=== PATIENT | female | born 1940 | race American Indian/Alaskan Native ===

== ENCOUNTER 2018-08-03 17:10 | Inpatient (IN) | payer MEDICARE ==
[2018-08-03 18:27] LABS: Basophils % (Auto) 0.8 % (0.0-1.8); Eosinophils # (Auto) 0.1 K/mm3 (0.0-0.4); Hematocrit 40.7 % (30.3-42.9); Hemoglobin 13.4 gm/dl (10.1-14.3); Lymphocytes # (Auto) 1.1 K/mm3 (1.2-5.4); Lymphocytes % (Auto) 18.2 % (13.4-35.0); Mean Corpuscular HGB Conc 33 % (30-34); Mean Corpuscular Hemoglobin 33 pg (28-32); Mean Corpuscular Volume 100 fl (79-97); Monocytes # (Auto) 0.8 K/mm3 (0.0-0.8); Monocytes % (Auto) 12.9 % (0.0-7.3); Platelet Count 390 K/mm3 (140-440); Red Blood Count 4.07 M/mm3 (3.65-5.03); Red Cell Distribution Width 14.9 % (13.2-15.2)
[2018-08-03 18:42] LABS: BUN/Creatinine Ratio 10; Blood Urea Nitrogen 6 mg/dL (7-17); Hemolysis Index 5
[2018-08-03 18:44] LABS: INR 1.11 (0.87-1.13)
[2018-08-03 18:45] LABS: Partial Thromboplastin Time 29.4 Sec. (24.2-36.6)
[2018-08-03] MEDS ORDERED: ELIQUIS PO ONE (19:56)
--- NOTE | 2018-08-03 20:06 | Emergency Department Report ---
HPI - General Chief Complaint: Extremity Problem,Nontraumatic Time Seen by Provider: 08/03/18 17:43 - HPI HPI: 78-year-old AA female presents to the emergency department by EMS from the [facility] with the complaint of a positive left upper extremity Doppler ultrasound study showing DVT. 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 All top of that, the patient has been placed on Megace recently to stimulate her appetite. The patient's daughter, who is bedside, says that they had noticed that her left arm was swollen and therefore the facility [facility] today to get the ultrasound which came back showing a DVT involving the subclavian, axillary and brachial veins. Patient also has a past mental history of CHF, hypertension and dementia. The patient herself is a poor historian but her daughter has been providing information. The primary care physician is Dr. Hussain Patiño. ED Past Medical Hx - Past Medical History Hx Hypertension: Yes Hx Congestive Heart Failure: Yes Hx Deep Vein Thrombosis: No Hx Psychiatric Treatment: Yes (DEMENTIA) - Surgical History Hx Pacemaker: No Hx Internal Defibrillator: No - Social History Smoking Status: Never Smoker - Medications Home Medications: Home Medications Medication Instructions Recorded Confirmed Last Taken Type Mirtazapine [Remeron] 15 mg PO HS 07/07/18 08/04/18 Unknown History QUEtiapine [SEROquel] 25 mg PO HS 07/07/18 08/04/18 Unknown History Aspirin EC [Aspirin Enteric Coated 81 mg PO QDAY #30 tablet. 07/11/18 Unknown Rx TAB] AtorvaSTATin [Lipitor] 40 mg PO QHS #30 tablet 07/11/18 08/04/18 Unknown Rx Carvedilol [Coreg] 6.25 mg PO BID tablet 07/11/18 08/04/18 Unknown Rx ISOSORBIDE MONOnitrate [Imdur ER] 30 mg PO QDAY tablet 07/11/18 08/04/18 Unknown Rx Lisinopril [Zestril TAB] 5 mg PO QDAY tablet 07/11/18 08/04/18 Unknown Rx Apixaban [Eliquis] 5 mg PO BID #74 tablet 08/03/18 Unknown Rx ED Review of Systems ROS: Stated complaint: DVT TO LEFT ARM Other details as noted in HPI Comment: Unobtainable due to pts medical conditions Cardiovascular: edema (left arm) Musculoskeletal: arthralgia (left shoulder), myalgia (left arm) Physical Exam - Physical Exam Vital Signs: Vital Signs 08/03/18 17:49 Temperature 97.9 F Pulse Rate 85 Respiratory 18 Rate Blood Pressure 158/85 [Right] O2 Sat by Pulse 100 Oximetry Physical Exam: GENERAL: The patient is well-developed well-nourished. HENT: Normocephalic. Atraumatic. Patient has moist mucous membranes. EYES: Extraocular motions are intact. NECK: Supple. Trachea is midline. CHEST/LUNGS: Clear to auscultation. There is no respiratory distress noted. HEART/CARDIOVASCULAR: Regular. There is no tachycardia. There is no murmur. ABDOMEN: Abdomen is soft, nontender. Patient has normal bowel sounds. There is no abdominal distention. SKIN: Skin is warm and dry. There is some nonpitting swelling of the left upper extremity when compared to the right. NEURO: The patient is awake and cooperative. The patient has normal speech. MUSCULOSKELETAL: There is no significant tenderness to palpation to the left upper extremity. Capillary refill is less than 2 seconds and radial pulse is + 2 over 4 to the affected left upper cavity.. There is decreased range of motion to the left upper extremity secondary to her previous stroke. ED Course Vital Signs 08/03/18 17:49 Temperature 97.9 F Pulse Rate 85 Respiratory 18 Rate Blood Pressure 158/85 [Right] O2 Sat by Pulse 100 Oximetry - Consultations Consultation #1: 08/03/18 20:05 I spoke to the vascular surgeon customer contact representative, Dr. Yun, regarding appropriate treatment of the patient's left upper extremity DVT. He agrees that if the patient's CT angiography of the chest does not show any pulmonary embolism, but the patient can be discharged back to her rehabilitation facility with anticoagulation. ED Medical Decision Making - Lab Data Result diagrams: 08/04/18 05:26 08/04/18 05:26 - Radiology Data Radiology results: report reviewed The outpatient ultrasound left upper extremity venous Doppler was reviewed and shows a deep vein thrombosis involving the subclavian, axillary, and brachial veins. PROCEDURE: CT angiogram chest with contrast. TECHNIQUE: Computerized tomographic angiography of the chest was performed after the IV injection of iodinated nonionic contrast including image processing. The image data was postprocessed using 2-dimensional multiplanar reformatted (MPR) and 3-dimensional (MIP and/or volume rendered) techniques. HISTORY: Left upper extremity deep venous thrombosis, shortness of breath. COMPARISON: No prior studies are available for comparison. FINDINGS: The trachea and central bronchi appear normal. There is mild subsegmental atelectasis in both lower lobes. The lungs are otherwise clear and well expanded. There are no pleural effusions. The thoracic aorta is mildly ectatic and moderately elongated. There is no evidence of an aortic dissection. There are at least 2 small filling defects in pulmonary arterial branches of the right lower lobe. These are consistent with small pulmonary emboli. The left pulmonary arterial branches enhance normally. There is no mediastinal adenopathy. The heart size is normal. The adrenal glands are not enlarged. The thoracic skeleton appears intact. There are several masses of low attenuation within the liver. These likely represent numerous hepatic cysts. This could be easily confirmed by ultrasound scanning. IMPRESSION: Small pulmonary emboli in the right lower lobe. Transcribed By: [facility] Dictated By: YELENA GRIFFIN MD Electronically Authenticated By: YELENA GRIFFIN MD Signed Date/Time: 08/03/182106 - Medical Decision Making The patient presents with a ultrasound showing acute left upper extremity DVT of the brachial, axillary and subclavian veins. This is most likely secondary to the patient's recent use of Megace and that she has left upper extremity paresis from her previous stroke. Patient has good capillary refill, a strong radial pulse and has normal skin color. There is low suspicion for any type of arterial insufficiency or cerulea dolens. The patient has not had any complaints of shortness of breath, chest pain, back pain but does have a history of dementia and therefore I have decided to rule out a pulmonary embolism in this patient. She will have a CT angiography of the chest that will be followed by one of my colleagues. If the patient does in fact have a pulmonary embolism, the patient will be admitted to the hospital. If there are no signs of any pulmonary embolism or any other condition found that requires admission, the patient will be discharged home to the rehabilitation facility. She has been given a first dose of Eliquis here to get anticoagulated and I will write a prescription for home. All of this information has been given to the patient's daughter including the anticoagulation and that she will get outpatient referral for vascular. I have reviewed the patient's CT angiography last night after I left the patient did end up having 2 small right lower pulmonary emboli. I had already started anticoagulation on Eliquis the patient was admitted to the hospital for further evaluation and treatment and was accepted by Dr. Owen. - Differential Diagnosis DVT, PE, cellulitis Critical Care Time: No Critical care attestation.: If time is entered above; I have spent that time in minutes in the direct care of this critically ill patient, excluding procedure time. ED Disposition Clinical Impression: Dementia Deep vein thrombosis (DVT) of axillary vein of left upper extremity Qualifiers: Chronicity: acute Qualified Code(s): I82.A12 - Acute embolism and thrombosis of left axillary vein Deep vein thrombosis (DVT) of brachial vein of left upper extremity Qualifiers: Chronicity: acute Qualified Code(s): I82.622 - Acute embolism and thrombosis of deep veins of left upper extremity Acute DVT (deep venous thrombosis) Qualifiers: DVT location: upper extremity Affected thrombotic vein of extremity: unspecified vein of extremity Laterality: left Qualified Code(s): I82.622 - Acute embolism and thrombosis of deep veins of left upper extremity Pulmonary embolism Qualifiers: Pulmonary embolism type: other Acute cor pulmonale presence: without acute cor pulmonale Disposition: 09 OP ADMIT IP TO THIS HOSP Is pt being admited?: Yes Condition: Stable
--- NOTE | 2018-08-03 21:08 | Cat Scan Report ---
FINAL REPORT PROCEDURE: CT angiogram chest with contrast. TECHNIQUE: Computerized tomographic angiography of the chest was performed after the IV injection of iodinated nonionic contrast including image processing. The image data was postprocessed using 2-dimensional multiplanar reformatted (MPR) and 3-dimensional (MIP and/or volume rendered) techniques. HISTORY: Left upper extremity deep venous thrombosis, shortness of breath. COMPARISON: No prior studies are available for comparison. FINDINGS: The trachea and central bronchi appear normal. There is mild subsegmental atelectasis in both lower lobes. The lungs are otherwise clear and well expanded. There are no pleural effusions. The thoracic aorta is mildly ectatic and moderately elongated. There is no evidence of an aortic dissection. There are at least 2 small filling defects in pulmonary arterial branches of the right lower lobe. These are consistent with small pulmonary emboli. The left pulmonary arterial branches enhance normally. There is no mediastinal adenopathy. The heart size is normal. The adrenal glands are not enlarged. The thoracic skeleton appears intact. There are several masses of low attenuation within the liver. These likely represent numerous hepatic cysts. This could be easily confirmed by ultrasound scanning. IMPRESSION: Small pulmonary emboli in the right lower lobe.
--- NOTE | 2018-08-03 21:22 | Emergency Department Report ---
ED General Adult HPI - General Chief complaint: Extremity Problem,Nontraumatic Stated complaint: DVT TO LEFT ARM Time Seen by Provider: 08/03/18 17:43 Source: EMS, RN notes reviewed Mode of arrival: Stretcher Limitations: Altered Mental Status, Physical Limitation - History of Present Illness Initial comments: Patient is 78 years old female, [facility] patient recently diagnosed with a stroke. Patient was sent from the [facility] after he was found to have left upper extremity DVT. Patient had history of advanced dementia and congestive heart failure. Patient is unable to provide any history. Most of the information is from daughter. Severity scale (0 -10): 0 - Related Data Home Medications Medication Instructions Recorded Confirmed Last Taken Mirtazapine [Remeron] 15 mg PO HS 07/07/18 07/07/18 Unknown QUEtiapine [SEROquel] 25 mg PO HS 07/07/18 07/07/18 Unknown Previous Rx's Medication Instructions Recorded Last Taken Type Aspirin EC [Aspirin Enteric Coated 81 mg PO QDAY #30 tablet.dr 07/11/18 Unknown Rx TAB] AtorvaSTATin [Lipitor] 40 mg PO QHS #30 tablet 07/11/18 Unknown Rx Carvedilol [Coreg] 6.25 mg PO BID tablet 07/11/18 Unknown Rx ISOSORBIDE MONOnitrate [Imdur ER] 30 mg PO QDAY tablet 07/11/18 Unknown Rx Lisinopril [Zestril TAB] 5 mg PO QDAY tablet 07/11/18 Unknown Rx Apixaban [Eliquis] 5 mg PO BID #74 tablet 08/03/18 Unknown Rx Allergies Allergy/AdvReac Type Severity Reaction Status Date / Time Penicillins Allergy Mild Rash Verified 07/07/18 09:42 ED Review of Systems ROS: Stated complaint: DVT TO LEFT ARM Other details as noted in HPI Comment: Unobtainable due to pts medical conditions Cardiovascular: edema (left arm) Musculoskeletal: arthralgia (left shoulder), myalgia (left arm) ED Past Medical Hx - Past Medical History Hx Hypertension: Yes Hx Congestive Heart Failure: Yes Hx Deep Vein Thrombosis: No Hx Psychiatric Treatment: Yes (DEMENTIA) - Surgical History Hx Pacemaker: No Hx Internal Defibrillator: No - Social History Smoking Status: Never Smoker - Medications Home Medications: Home Medications Medication Instructions Recorded Confirmed Last Taken Type Mirtazapine [Remeron] 15 mg PO HS 07/07/18 07/07/18 Unknown History QUEtiapine [SEROquel] 25 mg PO HS 07/07/18 07/07/18 Unknown History Aspirin EC [Aspirin Enteric Coated 81 mg PO QDAY #30 tablet.dr 07/11/18 Unknown Rx TAB] AtorvaSTATin [Lipitor] 40 mg PO QHS #30 tablet 07/11/18 Unknown Rx Carvedilol [Coreg] 6.25 mg PO BID tablet 07/11/18 Unknown Rx ISOSORBIDE MONOnitrate [Imdur ER] 30 mg PO QDAY tablet 07/11/18 Unknown Rx Lisinopril [Zestril TAB] 5 mg PO QDAY tablet 07/11/18 Unknown Rx Apixaban [Eliquis] 5 mg PO BID #74 tablet 08/03/18 Unknown Rx ED Physical Exam - General Limitations: Altered Mental Status, Physical Limitation General appearance: alert, in no apparent distress, other (slightly tachypnic) - Head Head exam: Present: atraumatic, normocephalic, normal inspection - Eye Eye exam: Present: normal appearance - ENT ENT exam: Present: normal exam, normal orophraynx - Neck Neck exam: Present: normal inspection, full ROM. Absent: tenderness, meningismus, lymphadenopathy, thyromegaly - Respiratory Respiratory exam: Present: normal lung sounds bilaterally - Cardiovascular Cardiovascular Exam: Present: regular rate, normal rhythm, normal heart sounds - GI/Abdominal GI/Abdominal exam: Present: soft, normal bowel sounds. Absent: distended, tenderness, guarding, rebound, rigid - Extremities Exam Extremities exam: Present: normal inspection - Back Exam Back exam: Present: normal inspection, full ROM - Neurological Exam Neurological exam: Present: alert, altered - Skin Skin exam: Present: warm, intact ED Course Vital Signs 08/03/18 08/03/18 17:49 21:17 Temperature 97.9 F 98 F Pulse Rate 85 77 Respiratory 18 20 Rate Blood Pressure 158/85 134/68 [Right] O2 Sat by Pulse 100 98 Oximetry ED Medical Decision Making - Lab Data Result diagrams: 08/03/18 18:15 08/03/18 18:15 - Radiology Data Radiology results: report reviewed Referring Physician: NI CACERES Patient Name: BRIGIDA MOSQUEDA Date of : 1940 Sex: Female Report Date: 2018-08-03 Report Status: Finalized Findings [facility] [address] [place] [address] Cat Scan Report Signed Patient: BRIGIDA MOSQUEDA MR#: [id number] : 1940 Acct:[id number] Age/Sex: 78 / F ADM Date: 08/03/18 Loc: ED Attending Dr: Ordering Physician: NI CACERES DO Date of Service: 08/03/18 Procedure(s): CT angio chest Accession Number(s): [id number] cc: NI CACERES DO FINAL REPORT PROCEDURE: CT angiogram chest with contrast. TECHNIQUE: Computerized tomographic angiography of the chest was performed after the IV injection of iodinated nonionic contrast including image processing. The image data was postprocessed using 2-dimensional multiplanar reformatted (MPR) and 3-dimensional (MIP and/or volume rendered) techniques. HISTORY: Left upper extremity deep venous thrombosis, shortness of breath. COMPARISON: No prior studies are available for comparison. FINDINGS: The trachea and central bronchi appear normal. There is mild subsegmental atelectasis in both lower lobes. The lungs are otherwise clear and well expanded. There are no pleural effusions. The thoracic aorta is mildly ectatic and moderately elongated. There is no evidence of an aortic dissection. There are at least 2 small filling defects in pulmonary arterial branches of the right lower lobe. These are consistent with small pulmonary emboli. The left pulmonary arterial branches enhance normally. There is no mediastinal adenopathy. The heart size is normal. The adrenal glands are not enlarged. The thoracic skeleton appears intact. There are several masses of low attenuation within the liver. These likely represent numerous hepatic cysts. This could be easily confirmed by ultrasound scanning. IMPRESSION: Small pulmonary emboli in the right lower lobe. Transcribed By: [facility] Dictated By: YELENA GRIFFIN MD Electronically Authenticated By: YELENA GRIFFIN MD Signed Date/Time: 08/03/182106 DD/ 06 TD/TT: 08/03/182106 - Medical Decision Making Nir is 78 years old female, [facility] patient recently diagnosed with a stroke. Patient was sent from the [facility] after she was found to have left upper extremity DVT. Patient had history of advanced dementia and congestive heart failure. Patient is unable to provide any history. Most of the information is from patient daughter. On physical exam patient slightly tachypneic but vital signs otherwise normal. Patient had a chest CTA which showed a right pulmonary emboli. I discussed patient with Dr. Emily Owen, she agreed to admit the patient to medical service. Critical Care Time: Yes Critical care time in (mins) excluding proc time.: 30 Critical care attestation.: If time is entered above; I have spent that time in minutes in the direct care of this critically ill patient, excluding procedure time. ED Disposition Clinical Impression: Deep vein thrombosis (DVT) of axillary vein of left upper extremity, Deep vein thrombosis (DVT) of brachial vein of left upper extremity, Dementia, CVA ( cerebral vascular accident), Pulmonary embolism Acute DVT (deep venous thrombosis) Qualifiers: DVT location: upper extremity Affected thrombotic vein of extremity: unspecified vein of extremity Laterality: left Qualified Code(s): I82.622 - Acute embolism and thrombosis of deep veins of left upper extremity Disposition: -09 OP ADMIT IP TO THIS HOSP Is pt being admited?: Yes Condition: Stable Instructions: Apixaban (By mouth), Deep Venous Thrombosis (ED) Additional Instructions: Please follow up with the primary care physician in the next few days. I have given him a referral for a local vascular surgeon, Dr devlin, for outpatient follow-up regarding her left upper extremity DVT. I have prescribed Eliquist, and anticoagulation medication for you to start. Please do not miss any doses unless there are signs of bleeding. I would recommend discontinuing the Megace , at least until follow-up with the primary care physician and vascular surgeon. Prescriptions: Apixaban [Eliquis] 5 mg PO BID #74 tablet Referrals: CHIN DEVLIN MD [Staff Physician] - 3-5 Days YAMILE FRAUSTO MD [Primary Care Provider] - 3-5 Days
[2018-08-03] MEDS: LOVENOX SUB-Q SCH (22:15)
[2018-08-03] MEDS ORDERED: ZOFRAN IV PRN (22:28)
[2018-08-03] MEDS ORDERED: SODIUM CHLORIDE FLUSH SYRINGE 10 ML IV PRN (22:28)
[2018-08-03] MEDS ORDERED: TYLENOL PO PRN (22:28)
--- NOTE | 2018-08-03 22:31 | History and Physical Report ---
History of Present Illness Date of examination: 08/03/18 History of present illness: 78-year-old woman with a history of dementia, breast cancer, recent CVA, dilated cardiomyopathy was sent to the emergency room for evaluation. The daughter state that she noticed in the left upper extremity was cold and has discoloration yesterday, ultrasound of the upper extremity was done and she was found to have a clot. In the emergency room scan of the chest was done which shows pulmonary emboli. The patient is unable to give a history. The patient was just discharged from the hospital, [[facility], just diagnosed with a CVA , dilated cardiomyopathy. Review of system unobtainable PAST MEDICAL HISTORY:dementia, breast cancer, recent CVA, dilated cardiomyopathy PAST SURGICAL HISTORY: Partial right meniscectomy SOCIAL HISTORY: No alcohol, no drugs, tobacco FAMILY HISTORY: Hypertension Medications and Allergies Allergies Allergy/AdvReac Type Severity Reaction Status Date / Time Penicillins Allergy Mild Rash Verified 07/07/18 09:42 Home Medications Medication Instructions Recorded Confirmed Last Taken Type Mirtazapine [Remeron] 15 mg PO HS 07/07/18 07/07/18 Unknown History QUEtiapine [SEROquel] 25 mg PO HS 07/07/18 07/07/18 Unknown History Aspirin EC [Aspirin Enteric Coated 81 mg PO QDAY #30 tablet.dr 07/11/18 Unknown Rx TAB] AtorvaSTATin [Lipitor] 40 mg PO QHS #30 tablet 07/11/18 Unknown Rx Carvedilol [Coreg] 6.25 mg PO BID tablet 07/11/18 Unknown Rx ISOSORBIDE MONOnitrate [Imdur ER] 30 mg PO QDAY tablet 07/11/18 Unknown Rx Lisinopril [Zestril TAB] 5 mg PO QDAY tablet 07/11/18 Unknown Rx Apixaban [Eliquis] 5 mg PO BID #74 tablet 08/03/18 Unknown Rx Active Meds: Active Medications Acetaminophen (Tylenol) 650 mg PO Q4H PRN PRN Reason: Pain MILD(1-3)/Fever >100.5/SOLIS Enoxaparin Sodium (Lovenox) 70 mg 1 mg/kg (70 mg) SUB-Q Q12HR CORNELL Ondansetron HCl (Zofran) 4 mg IV Q8H PRN PRN Reason: Nausea And Vomiting Sodium Chloride (Sodium Chloride Flush Syringe 10 Ml) 10 ml IV BID CORNELL Sodium Chloride (Sodium Chloride Flush Syringe 10 Ml) 10 ml IV PRN PRN PRN Reason: LINE FLUSH Exam - Physical Exam Narrative exam: Gen. appearance: Patient lying in bed, no apparent distress HEENT: Normocephalic, atraumatic, pupils equally round and reactive to light, extraocular movement intact, and no sclericterus,. No JVD or thyromegaly or nodule,neck supple, no carotid bruit ,mucous membranes moist, no exudate or erythema Heart: S1, S2, regular rate and rhythm Lungs: Clear bilaterally, breathing comfortable Abdomen: Positive bowel sounds, non-tender, nondistended, no organomegaly Extremity:no edema cyanosis, clubbing Skin: no rash, dry, warm Neuro: Oriented 3, cranial nerves II-12 intact, speech is fluent - Constitutional Vitals: Temp Pulse Resp BP Pulse Ox 98 F 72 22 134/68 97 08/03/18 21:17 08/03/18 21:31 08/03/18 21:31 08/03/18 21:31 08/03/18 21:31 Results - Labs CBC & Chem 7: 08/03/18 18:15 08/03/18 18:15 Labs: Abnormal lab results 08/03/18 08/03/18 Range/Units 18:15 18:15 MCV 100 H (79-97) fl MCH 33 H (28-32) pg Bollinger % (Auto) 12.9 H (0.0-7.3) % Lymph # 1.1 L (1.2-5.4) K/mm3 BUN 6 L (7-17) mg/dL Creatinine 0.6 L (0.7-1.2) mg/dL Glucose 123 H (65-100) mg/dL - Imaging and Cardiology CT scan - chest: report reviewed Assessment and Plan Assessment Acute pulmonary emboli Left upper extremity DVT recent CVA dilated cardiomyopathy dementia history of breast cancer Plan Admit to medicine Full dose Lovenox, check Doppler lower extremity Consult cardiology ? Candidate for long-term anticoagulation Continue appropriate outpatient medications DVT prophylaxis
[2018-08-04 06:08] LABS: Basophils # (Auto) 0.1 K/mm3 (0.0-0.1); Basophils % (Auto) 0.9 % (0.0-1.8); Eosinophils % (Auto) 0.6 % (0.0-4.3); Hematocrit 40.9 % (30.3-42.9); Hemoglobin 13.2 gm/dl (10.1-14.3); Lymphocytes # (Auto) 1.5 K/mm3 (1.2-5.4); Lymphocytes % (Auto) 23.6 % (13.4-35.0); Mean Corpuscular HGB Conc 32 % (30-34); Mean Corpuscular Hemoglobin 32 pg (28-32); Mean Corpuscular Volume 99 fl (79-97); Monocytes # (Auto) 0.7 K/mm3 (0.0-0.8); Monocytes % (Auto) 11.4 % (0.0-7.3); Platelet Count 367 K/mm3 (140-440); Red Blood Count 4.12 M/mm3 (3.65-5.03); Red Cell Distribution Width 14.6 % (13.2-15.2)
[2018-08-04 06:31] LABS: BUN/Creatinine Ratio 10; Blood Urea Nitrogen 5 mg/dL (7-17); Calcium 10.1 mg/dL (8.4-10.2); Hemolysis Index 11
--- NOTE | 2018-08-04 10:59 | Consultation ---
History of Present Illness Consult date: 08/04/18 Consult reason: other (Cardiomyopathy) History of present illness: This is a 78 year old woman with advanced Dementia who was sent to the emergency department from the intermediate with reports of positive left upper extremity DVT by doppler ultrasound study. On presentation, a chest CT scan revealed right lower lobe pulmonary embolism. Admission was requested. Of note, the patient was admitted to this hospital a month ago with acute CVA. Further evaluation with an echocardiogram revealed a dilated cardiomyopathy with a left ventricular ejection fraction 20-25% of uncertain chronicity. There was regional wall motion abnormalities suggestive of a prior anterior wall myocardial infarction. Patient was treated conservatively and placed on medical therapy for dilated cardiomyopathy. There were no reports of chest pain. There were no reports of shortness of breath or lower extremity edema. An 12 lead EKG shows a sinus rhythm, no acute ischemic changes. There were reports of arrhythmias seen on telemetry. Medications and Allergies Allergies Allergy/AdvReac Type Severity Reaction Status Date / Time Penicillins Allergy Mild Rash Verified 07/07/18 09:42 Home Medications Medication Instructions Recorded Confirmed Last Taken Type Mirtazapine [Remeron] 15 mg PO HS 07/07/18 08/04/18 Unknown History QUEtiapine [SEROquel] 25 mg PO HS 07/07/18 08/04/18 Unknown History Aspirin EC [Aspirin Enteric Coated 81 mg PO QDAY #30 tablet. 07/11/18 Unknown Rx TAB] AtorvaSTATin [Lipitor] 40 mg PO QHS #30 tablet 07/11/18 08/04/18 Unknown Rx Carvedilol [Coreg] 6.25 mg PO BID tablet 07/11/18 08/04/18 Unknown Rx ISOSORBIDE MONOnitrate [Imdur ER] 30 mg PO QDAY tablet 07/11/18 08/04/18 Unknown Rx Lisinopril [Zestril TAB] 5 mg PO QDAY tablet 07/11/18 08/04/18 Unknown Rx Apixaban [Eliquis] 5 mg PO BID #74 tablet 08/03/18 Unknown Rx Active Meds: Active Medications Acetaminophen (Tylenol) 650 mg PO Q4H PRN PRN Reason: Pain MILD(1-3)/Fever >100.5/SOLIS Atorvastatin Calcium (Lipitor) 40 mg PO QHS CORNELL Carvedilol (Coreg) 6.25 mg PO BID CORNELL Enoxaparin Sodium (Lovenox) 70 mg 1 mg/kg (70 mg) SUB-Q Q12HR [facility] Last Admin: 08/03/18 22:15 Dose: 70 mg Lisinopril (Zestril) 5 mg PO QDAY [facility] Ondansetron HCl (Zofran) 4 mg IV Q8H PRN PRN Reason: Nausea And Vomiting Quetiapine Fumarate (Seroquel) 25 mg PO HS CORNELL Sodium Chloride (Sodium Chloride Flush Syringe 10 Ml) 10 ml IV BID [facility] Sodium Chloride (Sodium Chloride Flush Syringe 10 Ml) 10 ml IV PRN PRN PRN Reason: LINE FLUSH Physical Examination Vital Signs Temp Pulse Resp BP Pulse Ox 97.9 F 85 18 158/85 100 08/03/18 17:49 08/03/18 17:49 08/03/18 17:49 08/03/18 17:49 08/03/18 17:49 General appearance: no acute distress HEENT: Positive: PERRL Cardiac: Positive: Reg Rate and Rhythm Results 08/04/18 05:26 08/04/18 05:26 Coagulation 08/03/18 Range/Units 18:15 PT 14.9 (12.2-14.9) Sec. INR 1.11 (0.87-1.13) APTT 29.4 (24.2-36.6) Sec. CBC 08/03/18 08/04/18 Range/Units 18:15 05:26 WBC 5.9 6.3 (4.5-11.0) K/mm3 RBC 4.07 4.12 (3.65-5.03) M/mm3 Hgb 13.4 13.2 (10.1-14.3) gm/dl Hct 40.7 40.9 (30.3-42.9) % Plt Count 390 367 (140-440) K/mm3 Lymph # 1.1 L 1.5 (1.2-5.4) K/mm3 [place] # 0.8 0.7 (0.0-0.8) K/mm3 Eos # 0.1 0.0 (0.0-0.4) K/mm3 Baso # 0.0 0.1 (0.0-0.1) K/mm3 Comprehensive Metabolic Panel 08/03/18 08/04/18 Range/Units 18:15 05:26 Sodium 140 140 (137-145) mmol/L Potassium 4.0 4.0 (3.6-5.0) mmol/L Chloride 104.3 108.6 H (98-107) mmol/L Carbon Dioxide 26 22 (22-30) mmol/L BUN 6 L 5 L (7-17) mg/dL Creatinine 0.6 L 0.5 L (0.7-1.2) mg/dL Glucose 123 H 85 (65-100) mg/dL Calcium 10.0 10.1 (8.4-10.2) mg/dL Assessment and Plan Acute PE/DVT Recent CVA Dilated cardiomyopathy, EF 20-25% Hypertension Advance Dementia
[2018-08-04] MEDS ORDERED: AFLURIA QUAD 2018-2019 SYRINGE IM ONE (12:00)
[2018-08-04] MEDS: LOVENOX SUB-Q SCH (12:15)
[2018-08-04] MEDS: COREG PO SCH ×2 (12:16→22:45)
[2018-08-04] MEDS: ZESTRIL PO SCH (12:16)
--- NOTE | 2018-08-04 13:50 | Progress Note ---
Assessment and Plan Assessment and plan: 78-year-old woman with a history of dementia, breast cancer, recent CVA, dilated cardiomyopathy was sent to the emergency room for evaluation. The daughter state that she noticed in the left upper extremity was cold and has discoloration yesterday, ultrasound of the upper extremity was done and she was found to have a clot. In the emergency room scan of the chest was done which shows pulmonary emboli. The patient is unable to give a history. The patient was just discharged from the hospital, [id number][[id number] [id number], just diagnosed with a CVA , dilated cardiomyopathy. Review of system unobtainable PAST MEDICAL HISTORY:dementia, breast cancer, recent CVA, dilated cardiomyopathy Acute pulmonary emboli Left upper extremity DVT recent CVA dilated cardiomyopathy dementia history of breast cancer Plan Admit to medicine Doppler lower extremity prelim neg for DVT Consult cardiology -switch from lovenox to eliquis Continue appropriate outpatient medications DVT prophylaxis History Interval history: Review of systems Constitutional: No fevers, no malaise, no joint pains CVS: No chest pain, no orthopnea, no dyspnea on exertion, no pedal edema GI: No abdominal pain, no diarrhea, no vomiting, no constipation Respiratory: No shortness of breath, no wheezing, no coughing Hospitalist Physical - Physical exam Narrative exam: General.: Appears well, no distress, nontoxic HEENT: Moist mucous membranes, extraocular muscles intact, no lymphadenopathy Neck: supple Cardiac: S1-S2 heard Lungs: clear to auscultation bilaterally Abdomen: soft , nontender, nondistended, bowel sounds positive Extremities: the left upper extremity edema, nontenderSkin: no rash or lesions Neurologic: Patient has decreased visual acuity, 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 Left upper extremity paralysis. She mostly refuses to open her eyes Psych: Patient is demented and oriented to person only, pleasant and cooperative - Constitutional Vitals: Temp Pulse Resp BP Pulse Ox 97.8 F 78 18 132/68 96 08/04/18 08:15 08/04/18 12:16 08/04/18 08:15 08/04/18 12:16 08/04/18 10:00 General appearance: Present: no acute distress Results - Labs CBC & Chem 7: 08/04/18 05:26 08/04/18 05:26 Labs: Laboratory Last Values WBC 6.3 K/mm3 (4.5-11.0) 08/04/18 05:26 RBC 4.12 M/mm3 (3.65-5.03) 08/04/18 05:26 Hgb 13.2 gm/dl (10.1-14.3) 08/04/18 05:26 Hct 40.9 % (30.3-42.9) 08/04/18 05:26 MCV 99 fl (79-97) H 08/04/18 05:26 MCH 32 pg (28-32) 08/04/18 05:26 MCHC 32 % (30-34) 08/04/18 05:26 RDW 14.6 % (13.2-15.2) 08/04/18 05:26 Plt Count 367 K/mm3 (140-440) 08/04/18 05:26 Lymph % (Auto) 23.6 % (13.4-35.0) 08/04/18 05:26 [place] % (Auto) 11.4 % (0.0-7.3) H 08/04/18 05:26 Eos % (Auto) 0.6 % (0.0-4.3) 08/04/18 05:26 Baso % (Auto) 0.9 % (0.0-1.8) 08/04/18 05:26 Lymph # 1.5 K/mm3 (1.2-5.4) 08/04/18 05:26 [place] # 0.7 K/mm3 (0.0-0.8) 08/04/18 05:26 Eos # 0.0 K/mm3 (0.0-0.4) 08/04/18 05:26 Baso # 0.1 K/mm3 (0.0-0.1) 08/04/18 05:26 Seg Neutrophils % 63.5 % (40.0-70.0) 08/04/18 05:26 Seg Neutrophils # 4.0 K/mm3 (1.8-7.7) 08/04/18 05:26 PT 14.9 Sec. (12.2-14.9) 08/03/18 18:15 INR 1.11 (0.87-1.13) 08/03/18 18:15 APTT 29.4 Sec. (24.2-36.6) 08/03/18 18:15 Sodium 140 mmol/L (137-145) 08/04/18 05:26 Potassium 4.0 mmol/L (3.6-5.0) 08/04/18 05:26 Chloride 108.6 mmol/L (98-107) H 08/04/18 05:26 Carbon Dioxide 22 mmol/L (22-30) 08/04/18 05:26 Anion Gap 13 mmol/L 08/04/18 05:26 BUN 5 mg/dL (7-17) L 08/04/18 05:26 Creatinine 0.5 mg/dL (0.7-1.2) L 08/04/18 05:26 Estimated GFR > 60 ml/min 08/04/18 05:26 BUN/Creatinine Ratio 10 % 08/04/18 05:26 Glucose 85 mg/dL (65-100) 08/04/18 05:26 Calcium 10.1 mg/dL (8.4-10.2) 08/04/18 05:26
[2018-08-04] MEDS: PLAVIX PO SCH (17:21)
[2018-08-04] MEDS: SODIUM CHLORIDE FLUSH SYRINGE 10 ML IV SCH ×2 (17:21→22:54)
[2018-08-04] MEDS: ELIQUIS PO SCH (22:46)
[2018-08-05] MEDS ORDERED: DULCOLAX PO PRN (01:18)
[2018-08-05] MEDS ORDERED: NITRO DUR TD SCH (06:00)
--- NOTE | 2018-08-05 09:24 | Progress Note ---
Assessment and Plan Acute PE/DVT initiated on eliquis for oral anticoagulation Recent CVA Dilated ischemic cardiomyopathy, EF 20-25% with RWMA on echo suggesting underlying coronary artery disease. Hypertension Advance Dementia Recommend: Continue medical therapy for ischemic cardiomyopathy and underlying coronary artery disease as tolerated. Subjective Date of service: 08/05/18 Interval history: Patient is resting in bed comfortably. Family members are at the bedside. Stable sinus rhythm on telemetry. Objective Vital Signs Temp Pulse Pulse Resp BP BP Pulse Ox 08/05/18 08:51 98.7 F 64 95 H 115/68 95 08/05/18 04:52 97.4 F L 60 20 116/74 93 08/05/18 00:06 97.3 F L 60 20 86/52 94 08/04/18 23:00 78 08/04/18 21:11 95 08/04/18 20:15 98.6 F 75 20 134/86 92 08/04/18 19:56 78 18 08/04/18 15:55 78 08/04/18 15:19 74 20 127/70 98 08/04/18 12:16 78 132/68 08/04/18 10:00 96 - Physical Examination General: No Apparent Distress Cardiac: Positive: Reg Rate and Rhythm
[2018-08-05] MEDS: MILK OF MAGNESIA PO PRN ×2 (09:58→10:02)
[2018-08-05] MEDS: ZESTRIL PO SCH (09:58)
[2018-08-05] MEDS: PLAVIX PO SCH (09:58)
[2018-08-05] MEDS: ELIQUIS PO SCH (10:00)
[2018-08-05] MEDS: COREG PO SCH (10:01)
[2018-08-05] MEDS: SODIUM CHLORIDE FLUSH SYRINGE 10 ML IV SCH (10:01)
--- NOTE | 2018-08-05 11:22 | Discharge Summary ---
Providers - Providers Date of Admission: 08/03/18 22:28 Attending physician: ANNIKA NORRIS MD 08/04/18 00:43 Consult to Physician [CONS] Routine Comment: Consulting Provider: PERLA NUNEZ Physician Instructions: Reason For Exam: CM, PE/CVA Primary care physician: YAMILE FRAUSTO Hospitalization Condition: Stable Disposition: DC-30 STILL A PATIENT Core Measure Documentation - Palliative Care Palliative Care/ Comfort Measures: Not Applicable Exam - Constitutional Vitals: Temp Pulse Resp BP Pulse Ox 98.7 F 64 95 H 115/68 93 08/05/18 08:51 08/05/18 08:51 08/05/18 08:51 08/05/18 08:51 08/05/18 11:14 Plan Follow up with: CHIN DEVLIN MD [Staff Physician] - 3-5 Days YAMILE FRAUSTO MD [Primary Care Provider] - 3-5 Days Prescriptions: Apixaban [Eliquis] 5 mg PO BID #74 tablet
[2018-08-05 12:49] VITALS: BP 135/72
--- NOTE | 2018-08-05 14:33 | Vascular Lab Report ---
LOWER EXTREMITY VENOUS DUPLEX: REASON FOR EXAM: Deep venous thrombosis. COMMENTS ON THE RIGHT: All veins visualized are freely compressible without evidence of internal echogenicity. Flow is spontaneous and phasic throughout. COMMENTS ON THE LEFT: All veins visualized are freely compressible without evidence of internal echogenicity. Flow is spontaneous and phasic throughout. IMPRESSION: No evidence of acute or chronic deep venous thrombosis in either lower extremity.
== END 2018-08-05 16:36 | DRG 299 ==
LOC: ED 17:10 → 4A 22:28
PROVIDERS: ADMIT Internal Medicine; ATTEND Internal Medicine
DX: I82.A12 Acute embolism and thrombosis of left axillary vein (principal); I26.99 Other pulmonary embolism without acute cor pulmonale; I42.0 Dilated cardiomyopathy; I82.622 Acute embolism and thrombosis of deep veins of left upper extremity; I50.9 Heart failure, unspecified; I11.0 Hypertensive heart disease with heart failure; I82.B12 Acute embolism and thrombosis of left subclavian vein; F03.90 Unspecified dementia, unspecified severity, without behavioral disturbance, psychotic disturbance, mood disturbance, and anxiety; Z86.73 Personal history of transient ischemic attack (TIA), and cerebral infarction without residual deficits; Z85.3 Personal history of malignant neoplasm of breast; Z88.0 Allergy status to penicillin; Z79.82 Long term (current) use of aspirin; Z79.899 Other long term (current) drug therapy; Z82.49 Family history of ischemic heart disease and other diseases of the circulatory system
CPT/HCPCS: 36415; 71275; 80048; 85025; 85610; 85730; 90686; 93970; 96372; A9270-GY; J1650; Q9967

== ENCOUNTER 2018-08-19 16:17 | Emergency (ER) | payer MEDICARE ==
--- NOTE | 2018-08-19 16:38 | Emergency Department Report ---
ED Neuro Deficit HPI - General Chief Complaint: Neuro Symptoms/Deficit Stated Complaint: POSS CVA Time Seen by Provider: 08/19/18 16:23 Source: family, EMS (verbal report received from EMS.ems notes not available at time of chart dictation), RN notes reviewed, old records reviewed Mode of arrival: Stretcher Limitations: Altered Mental Status, Physical Limitation - History of Present Illness Initial Comments: This is a 78-year-old female whom I have evaluated in the past. Her past medical history includes stroke with residual left-sided weakness, recent admission to this hospital for left upper extremity DVT and pulmonary embolus, currently on eliquis therapy, dilated ischemic cardiomyopathy with an ejection fraction of 20-25%, and profound dementia. She is brought to the hospital by EMS as a possible code stroke. As per verbal report from the patient's caregiver and her daughter, patient's last known well time is 12:00 PM. At 2:00, family was having trouble getting patient out of the car, and noticed that she was dragging her left leg more than usual. The patient is not communicative, and therefore is a very poor historian, and can therefore not describe exacerbating or relieving factors, radiation, or qualitative nature of her symptoms. As per review of old medical records, she is also on Plavix. -: unknown Location: left leg, right leg History of same: Yes Place: home - Related Data Home Medications: Home Medications Medication Instructions Recorded Confirmed Last Taken Mirtazapine [Remeron] 15 mg PO HS 07/07/18 08/04/18 Unknown QUEtiapine [SEROquel] 25 mg PO HS 07/07/18 08/04/18 Unknown Aspirin EC [Aspirin Enteric Coated 81 mg PO QAM 08/19/18 08/19/18 Unknown TAB] Bisacodyl [Dulcolax suppos] 10 mg [place] QHS PRN 08/19/18 08/19/18 Unknown Lisinopril [Zestril TAB] 5 mg PO QPM 08/19/18 08/19/18 Unknown Nitroglycerin [Nitro Dur] 0.4 mg TD DAILY@0600 08/19/18 08/19/18 Unknown Previous Rx's Medication Instructions Recorded Last Taken Type AtorvaSTATin [Lipitor] 40 mg PO QHS #30 tablet 07/11/18 Unknown Rx Carvedilol [Coreg] 6.25 mg PO BID tablet 07/11/18 Unknown Rx Apixaban [Eliquis] 5 mg PO BID #74 tablet 08/03/18 Unknown Rx Allergies/Adverse Reactions: Allergies Allergy/AdvReac Type Severity Reaction Status Date / Time Penicillins Allergy Mild Rash Verified 07/07/18 09:42 ED Review of Systems ROS: Stated complaint: POSS CVA Other details as noted in HPI Comment: Unobtainable due to pts medical conditions ED Past Medical Hx - Past Medical History Hx Hypertension: Yes Hx Congestive Heart Failure: Yes Hx Deep Vein Thrombosis: No Hx Psychiatric Treatment: Yes (DEMENTIA) - Surgical History Hx Pacemaker: No Hx Internal Defibrillator: No - Social History Smoking Status: Never Smoker - Medications Home Medications: Home Medications Medication Instructions Recorded Confirmed Last Taken Type Mirtazapine [Remeron] 15 mg PO HS 07/07/18 08/04/18 Unknown History QUEtiapine [SEROquel] 25 mg PO HS 07/07/18 08/04/18 Unknown History AtorvaSTATin [Lipitor] 40 mg PO QHS #30 tablet 07/11/18 08/04/18 Unknown Rx Carvedilol [Coreg] 6.25 mg PO BID tablet 07/11/18 08/04/18 Unknown Rx Apixaban [Eliquis] 5 mg PO BID #74 tablet 08/03/18 Unknown Rx Aspirin EC [Aspirin Enteric Coated 81 mg PO QAM 08/19/18 08/19/18 Unknown History TAB] Bisacodyl [Dulcolax suppos] 10 mg NJ QHS PRN 08/19/18 08/19/18 Unknown History Lisinopril [Zestril TAB] 5 mg PO QPM 08/19/18 08/19/18 Unknown History Nitroglycerin [Nitro Dur] 0.4 mg TD DAILY@0600 08/19/18 08/19/18 Unknown History ED Neuro Physical Exam - General Limitations: Altered Mental Status, Physical Limitation, Other (patient is demented. Patient is a poor historian) General appearance: alert, in no apparent distress Suspected Stroke: Yes - Head Head exam: Present: atraumatic, normocephalic - Eye Eye exam: Present: normal appearance, PERRL, other (patient noted to be moving her eyes to the right and midline. She does not follow commands, and therefore a detailed extraocular movement examination cannot take place.) - ENT ENT exam: Present: normal exam, normal orophraynx, normal external ear exam - Neck Neck exam: Present: normal inspection, full ROM. Absent: tenderness, meningismus - Respiratory Respiratory exam: Present: normal lung sounds bilaterally. Absent: respiratory distress, wheezes, rales, rhonchi, stridor, chest wall tenderness, accessory muscle use, decreased breath sounds, prolonged expiratory - Cardiovascular Cardiovascular Exam: Present: regular rate, normal rhythm, normal heart sounds - GI/Abdominal GI/Abdominal exam: Present: soft. Absent: distended, tenderness, guarding, rebound, rigid, pulsatile mass - Extremities Exam Extremities exam: Present: normal inspection, other (2+ pulses noted in the bilateral upper, lower extremities. Compartments soft. No long bony tenderness. The pelvis is stable.). Absent: calf tenderness - Back Exam Back exam: Present: normal inspection, full ROM. Absent: paraspinal tenderness , vertebral tenderness - Neurological Exam Neurological exam: Present: altered, motor sensory deficit, other (there is no facial droop. Patient moving right upper extremity. Patient moves right foot. She indicates that she has no sensation in the right arm or right leg. She indicates sensation is intact to light touch in the left lower extremity) - NIHSS Assessment Interval: Baseline 1a. Level of Consciousness: arousable/minor stimuli 1b. LOC Questions: answers no questions correctly 1c. LOC Commands: performs 1 task correctly 2. Best Gaze: normal 3. Visual: no visual loss (unable to assess) 4. Facial Palsy: normal symmetrical movement 5b. Motor Arm Right: some gravity effort 5a. Motor Arm Left: no gravity effort 6a. Motor Leg Left: no gravity effort 6b. Motor Leg Right: some gravity effort 7. Limb Ataxia: amputation (unable to assess) 8. Sensory: mild/moderate sensory loss 9. Best Language: no aphasia 10. Dysarthria: normal 11. Extinction/Inattention: visual/tactile inattention Total Score: 16 Stroke Severity: Moderate to Severe Stroke - Psychiatric Psychiatric exam: Present: flat affect ED Course Vital Signs 08/19/18 08/19/18 08/19/18 16:20 17:15 17:50 Temperature 97.8 F Pulse Rate 73 72 74 Respiratory 13 16 21 Rate Blood Pressure 144/94 Blood Pressure 128/83 [Right] O2 Sat by Pulse 98 98 Oximetry 08/19/18 08/19/1808/19/18 18:01 18:15 18:31 Temperature Pulse Rate 81 80 84 Respiratory 20 19 22 Rate Blood Pressure 127/80 122/84 115/75 Blood Pressure [Right] O2 Sat by Pulse Oximetry 08/19/18 18:45 Temperature Pulse Rate 79 Respiratory 14 Rate Blood Pressure 115/75 Blood Pressure [Right] O2 Sat by Pulse Oximetry - Reevaluation(s) Reevaluation #1: 08/19/18 16:36 Differential diagnosis, including but not limited to: Ischemic stroke, hemorrhagic stroke, pneumonia, urinary tract infection Assessment and plan: 78-year-old female on systemic anticoagulation, jessicaquis, who presents with possible strokelike symptoms, and to start TPA candidate as she has had her systemic anticoagulation within the past 12 hours. This is confirmed by family and by animal caretaker. In addition, the patient's last known well time was 12:00 PM, and therefore is outside of 4.5 hour window. Furthermore, the patient was recently seen at this hospital beginning of July for strokelike symptoms, and her case was discussed with the endovascular stroke team at [facility], and she was not deemed to be an endovascular candidate secondary to her underlying dementia. Furthermore, she had a CT scan of her neck on July 10, which demonstrated calcified plaques within the distal vertebral arteries bilaterally, but otherwise not demonstrate significant large vessel occlusion. We will work the patient up for stroke, including appropriate laboratory studies , EKG, urinalysis x-ray of the chest, noncontrast CT scan of the brain. I will again discuss with [place] endovascular stroke neurology to determine patient's suitability for endovascular intervention, but I am highly doubtful that an emergent CT angiogram will be recommended. I will reassess after all the patient's data points have resulted. Patient may benefit from hospice/palliative care consult. Reevaluation #2: 08/19/18 17:32 Laboratory studies reviewed and are unremarkable. CT scan of the brain suggest stroke with petechial transformation. This hospital does not have neurosurgery , neuro critical care, or stroke neurology available for emergency room consultation. The patient has an emergency medical condition which cannot be definitively managed at this hospital, and thus requires transfer to a higher level of care. Case, laboratory studies, CT scan and physical findings were discussed with stroke neurologist, Dr. Anuel Jose, at the [place] [facility] , and he has accepted the patient as a transfer. He recommends prothrombin complex concentrate for anticoagulation reversal. Extensive discussion had with daughter. She gives informed consent for transfer. Also advised daughter to consider hospice/palliative care consult as receiving facility. - Lab Data Result diagrams: 08/19/18 16:37 08/19/18 16:37 Lab Results 08/19/18 08/19/18 08/19/18 Range/Units 16:21 16:37 16:37 WBC 5.3 (4.5-11.0) K/mm3 RBC 4.32 (3.65-5.03) M/mm3 Hgb 14.2 (10.1-14.3) gm/dl Hct 43.6 H (30.3-42.9) % MCV 101 H (79-97) fl MCH 33 H (28-32) pg MCHC 33 (30-34) % RDW 16.0 H (13.2-15.2) % Plt Count 282 (140-440) K/mm3 Add Manual Diff Complete Total Counted 100 Seg Neuts % (Manual) 59.0 (40.0-70.0) % Band Neutrophils % 0 % Lymphocytes % (Manual) 30.0 (13.4-35.0) % Reactive Lymphs % (Man) 0 % Monocytes % (Manual) 9.0 H (0.0-7.3) % Eosinophils % (Manual) 2.0 (0.0-4.3) % Basophils % (Manual) 0 (0.0-1.8) % Metamyelocytes % 0 % Myelocytes % 0 % Promyelocytes % 0 % Blast Cells % 0 % Nucleated RBC % Not Reportable Seg Neutrophils # Man 3.1 (1.8-7.7) K/mm3 Band Neutrophils # 0.0 K/mm3 Lymphocytes # (Manual) 1.6 (1.2-5.4) K/mm3 Abs React Lymphs (Man) 0.0 K/mm3 Monocytes # (Manual) 0.5 (0.0-0.8) K/mm3 Eosinophils # (Manual) 0.1 (0.0-0.4) K/mm3 Basophils # (Manual) 0.0 (0.0-0.1) K/mm3 Metamyelocytes # 0.0 K/mm3 Myelocytes # 0.0 K/mm3 Promyelocytes # 0.0 K/mm3 Blast Cells # 0.0 K/mm3 WBC Morphology Not Reportable Hypersegmented Neuts Not Reportable Hyposegmented Neuts Not Reportable Hypogranular Neuts Not Reportable Smudge Cells Not Reportable Toxic Granulation Not Reportable Toxic Vacuolation Not Reportable Dohle Bodies Not Reportable Pelger-Huet Anomaly Not Reportable Svetlana Rods Not Reportable Platelet Estimate Consistent w auto Clumped Platelets Not Reportable Plt Clumps, EDTA Not Reportable Large Platelets Not Reportable Giant Platelets Not Reportable Platelet Satelliting Not Reportable Plt Morphology Comment Not Reportable RBC Morphology Not Reportable Dimorphic RBCs Not Reportable Polychromasia Not Reportable Hypochromasia Not Reportable Poikilocytosis Not Reportable Anisocytosis Not Reportable Microcytosis Not Reportable Macrocytosis 1+ Spherocytes Not Reportable Pappenheimer Bodies Not Reportable Sickle Cells Not Reportable Target Cells Not Reportable Tear Drop Cells Not Reportable Ovalocytes Not Reportable Helmet Cells Not Reportable Ambroc[place] Bodies Not Reportable [place] Rings Not Reportable [place] Cells 1+ Bite Cells Not Reportable Crenated Cell Not Reportable Elliptocytes Not Reportable Acanthocytes (Spur) Few Rouleaux Not Reportable Hemoglobin C Crystals Not Reportable Schistocytes Not Reportable Malaria parasites Not Reportable Robert Bodies Not Reportable Hem Pathologist Commnt No PT 19.4 H (12.2-14.9) Sec. INR 1.54 H (0.87-1.13) APTT 35.7 (24.2-36.6) Sec. Thrombin Time 19.8 H (15.1-19.6) Sec. Sodium (137-145) mmol/L Potassium (3.6-5.0) mmol/L Chloride (98-107) mmol/L Carbon Dioxide (22-30) mmol/L Anion Gap mmol/L BUN (7-17) mg/dL Creatinine (0.7-1.2) mg/dL Estimated GFR ml/min BUN/Creatinine Ratio % Glucose (65-100) mg/dL POC Glucose 80 (70-105) Calcium (8.4-10.2) mg/dL Total Bilirubin (0.1-1.2) mg/dL AST (5-40) units/L ALT (7-56) units/L Alkaline Phosphatase (35-129) units/L Total Creatine Kinase (30-135) units/L CK-MB (CK-2) (0.0-4.0) ng/mL CK-MB (CK-2) Rel Index (0-4) Troponin T (0.00-0.029) ng/mL Total Protein (6.3-8.2) g/dL Albumin (3.9-5) g/dL Albumin/Globulin Ratio % //18 Range/Units 16:37 WBC (4.5-11.0) K/mm3 RBC (3.65-5.03) M/mm3 Hgb (10.1-14.3) gm/dl Hct (30.3-42.9) % MCV (79-97) fl MCH (28-32) pg MCHC (30-34) % RDW (13.2-15.2) % Plt Count (140-440) K/mm3 Add Manual Diff Total Counted Seg Neuts % (Manual) (40.0-70.0) % Band Neutrophils % % Lymphocytes % (Manual) (13.4-35.0) % Reactive Lymphs % (Man) % Monocytes % (Manual) (0.0-7.3) % Eosinophils % (Manual) (0.0-4.3) % Basophils % (Manual) (0.0-1.8) % Metamyelocytes % % Myelocytes % % Promyelocytes % % Blast Cells % % Nucleated RBC % Seg Neutrophils # Man (1.8-7.7) K/mm3 Band Neutrophils # K/mm3 Lymphocytes # (Manual) (1.2-5.4) K/mm3 Abs React Lymphs (Man) K/mm3 Monocytes # (Manual) (0.0-0.8) K/mm3 Eosinophils # (Manual) (0.0-0.4) K/mm3 Basophils # (Manual) (0.0-0.1) K/mm3 Metamyelocytes # K/mm3 Myelocytes # K/mm3 Promyelocytes # K/mm3 Blast Cells # K/mm3 WBC Morphology Hypersegmented Neuts Hyposegmented Neuts Hypogranular Neuts Smudge Cells Toxic Granulation Toxic Vacuolation Dohle Bodies Pelger-Huet Anomaly Svetlana Rods Platelet Estimate Clumped Platelets Plt Clumps, EDTA Large Platelets Giant Platelets Platelet Satelliting Plt Morphology Comment RBC Morphology Dimorphic RBCs Polychromasia Hypochromasia Poikilocytosis Anisocytosis Microcytosis Macrocytosis Spherocytes Pappenheimer Bodies Sickle Cells Target Cells Tear Drop Cells Ovalocytes Helmet Cells Ambrocio-[place] Bodies [place] Rings Mary Cells Bite Cells Crenated Cell Elliptocytes Acanthocytes (Spur) Rouleaux Hemoglobin C Crystals Schistocytes Malaria parasites Robert Bodies Hem Pathologist Commnt PT (12.2-14.9) Sec. INR (0.87-1.13) APTT (24.2-36.6) Sec. Thrombin Time (15.1-19.6) Sec. Sodium 138 (137-145) mmol/L Potassium 4.4 (3.6-5.0) mmol/L Chloride 104.4 (98-107) mmol/L Carbon Dioxide 21 L (22-30) mmol/L Anion Gap 17 mmol/L BUN 13 (7-17) mg/dL Creatinine 0.6 L (0.7-1.2) mg/dL Estimated GFR > 60 ml/min BUN/Creatinine Ratio 22 % Glucose 90 (65-100) mg/dL POC Glucose (70-105) Calcium 10.2 (8.4-10.2) mg/dL Total Bilirubin 0.30 (0.1-1.2) mg/dL AST 25 (5-40) units/L ALT 25 (7-56) units/L Alkaline Phosphatase 70 (35-129) units/L Total Creatine Kinase 52 (30-135) units/L CK-MB (CK-2) 1.2 (0.0-4.0) ng/mL CK-MB (CK-2) Rel Index 2.3 (0-4) Troponin T < 0.010 (0.00-0.029) ng/mL Total Protein 6.6 (6.3-8.2) g/dL Albumin 3.8 L (3.9-5) g/dL Albumin/Globulin Ratio 1.4 % - EKG Data -: EKG Interpreted by [place] EKG shows normal: sinus rhythm 08/19/18 19:04 Sinus, 79 bpm, borderline left axis deviation, motion artifact, low voltage in the lateral leads, abnormal EKG, T-wave inversions in the inferior leads, this is not a STEMI. - Radiology Data Radiology results: report reviewed, image reviewed - Core Measures Measure Exclusions: not indicated - Thrombolytic Inclusion/Exclusion Thrombolytic Exclusion Criteria: Symptom Onset > 3 Hours Thrombolytic Contraindications: Patient on Anticoagulants, GI or Other Bleeding Critical Care Time: Yes Critical care time in (mins) excluding proc time.: 45 Critical care attestation.: If time is entered above; I have spent that time in minutes in the direct care of this critically ill patient, excluding procedure time. ED Disposition Clinical Impression: CVA (cerebral vascular accident) [id number] IP Is pt being admited?: No Does the pt Need Aspirin: No Condition: Critical Referrals: PRIMARY CARE, [Primary Care Provider] - 3-5 Days
--- NOTE | 2018-08-19 17:07 | Cat Scan Report ---
FINAL REPORT EXAM: CT HEAD/BRAIN WO CON HISTORY: Stroke symptoms TECHNIQUE: 2.5 millimeter axial images from the skullbase to the vertex. Comparison: None FINDINGS: Low attenuation in the subcortical and deep white matter of the cerebral hemispheres bilaterally most likely represent areas of chronic post ischemic demyelination/small vessel disease. There is edema in the cortex and subcortical white matter in an area of the right posterior parietal lobe with areas of increased density within the area of infarct. Though these may represent thrombus within vascular structures, petechial hemorrhage also needs to be considered. There are 2 additional areas of appearance of cortical edema in the right frontal lobe suggestive of additional areas of acute cortical infarct. There is a mild degree of mass effect with effacement of the subarachnoid spaces in the area of acute infarct in the right parietal lobe. Ventricular size is concordant with the degree of atrophy. There is atherosclerotic vascular calcification of the internal carotid arteries bilaterally at the skullbase. The visualized portions of the orbits the, paranasal and mastoid sinuses are unremarkable. IMPRESSION: 1. Areas of acute cortical infarct in the right frontal and parietal lobes. There are small areas of increased density in the right parietal lobe infarct which may represent thrombus within vascular structures or areas of petechial hemorrhage. This study was discussed with Dr. Suarez at 4:55 p.m.
[2018-08-19 17:08] LABS: INR 1.54 (0.87-1.13); Partial Thromboplastin Time 35.7 Sec. (24.2-36.6); Thrombin Time 19.8 Sec. (15.1-19.6)
[2018-08-19 17:10] LABS: Hematocrit 43.6 % (30.3-42.9); Hemoglobin 14.2 gm/dl (10.1-14.3); Mean Corpuscular HGB Conc 33 % (30-34); Mean Corpuscular Hemoglobin 33 pg (28-32); Mean Corpuscular Volume 101 fl (79-97); Platelet Count 282 K/mm3 (140-440); Red Blood Count 4.32 M/mm3 (3.65-5.03)
[2018-08-19 17:18] LABS: Creatine Kinase MB 1.2 ng/mL (0.0-4.0)
[2018-08-19 17:19] LABS: Alanine Aminotransferase 25 units/L (7-56); Albumin 3.8 g/dL (3.9-5); BUN/Creatinine Ratio 22; Blood Urea Nitrogen 13 mg/dL (7-17); Calcium 10.2 mg/dL (8.4-10.2); Hemolysis Index 42
[2018-08-19] MEDS ORDERED: KCENTRA (1,000 U) VIAL IV STA (17:32)
--- NOTE | 2018-08-19 17:44 | XRay Report ---
FINAL REPORT EXAM: XR CHEST 1V AP HISTORY: cva TECHNIQUE: Frontal portable view of the chest Comparison: None FINDINGS: There is bilateral hypoinflation with crowding of the bronchovascular structures. There is pulmonary consolidation in the right lung base. Atelectasis versus infiltrate. There is no evidence of pneumothorax or pleural fluid collection. The cardiac silhouette is not well evaluated due to the hypoinflation. The thoracic aorta is mildly tortuous. The bony structures are notable for degenerative change of the shoulder joints bilaterally. IMPRESSION: 1. Hypoinflation with atelectasis versus infiltrate right lung base.
[2018-08-19 18:10] LABS: Basophils % (Manual) 0 % (0.0-1.8); Total Cells Counted 100
[2018-08-19 18:22] LABS: Acanthocytes Few; Burr Cells 1+; Macrocytosis 1+; Platelet Estimate Consistent w Auto
[2018-08-19] MEDS ORDERED: LEVAQUIN 500MG/100ML 500 MG/100 ML BAG IV ONE (19:03)
[2018-08-19 20:09] VITALS: BP 142/78
== END 2018-08-19 19:30 | disposition short-term general hospital (02) ==
LOC: ED 16:17
DX: I63.9 Cerebral infarction, unspecified (principal); I11.0 Hypertensive heart disease with heart failure; I50.9 Heart failure, unspecified; Z79.82 Long term (current) use of aspirin; Z88.0 Allergy status to penicillin
CPT/HCPCS: 36415; 70450; 71045; 80053; 82550; 82553; 82962; 84484; 85007; 85025; 85610; 85670; 85730; 93005; 93010; 99291; J7195

== ENCOUNTER 2018-12-03 12:08 | Inpatient (IN) | payer MEDICARE ==
[2018-12-03 14:42] LABS: Hematocrit 43.9 % (30.3-42.9); Hemoglobin 14.5 gm/dl (10.1-14.3); Mean Corpuscular HGB Conc 33 % (30-34); Mean Corpuscular Volume 102 fl (79-97); Red Blood Count 4.31 M/mm3 (3.65-5.03); Red Cell Distribution Width 16.9 % (13.2-15.2)
[2018-12-03 14:50] LABS: BUN/Creatinine Ratio 20; Blood Urea Nitrogen 10 mg/dL (7-17); Calcium 10.2 mg/dL (8.4-10.2); Hemolysis Index 59
--- NOTE | 2018-12-03 15:30 | XRay Report ---
CHEST ONE VIEW INDICATION: Hypertension. COMPARISON: 08/19/2018. FINDINGS: Portable, single, frontal chest radiograph demonstrates suboptimal inspiration with exaggerated cardiomediastinal silhouette. Grossly clear lungs. Demineralized bones. Extrinsic EKG leads. CONCLUSION: Limited, though unremarkable chest radiograph, as described. Thank you for the opportunity to participate in this patient's care.
--- NOTE | 2018-12-03 15:34 | Emergency Department Report ---
ED General Adult HPI - General Chief complaint: Pain General Stated complaint: LEG PAIN Time Seen by Provider: 12/03/18 13:18 Source: patient, family, EMS Mode of arrival: Stretcher Limitations: Altered Mental Status, Physical Limitation - History of Present Illness Initial comments: 78-year-old female is brought to the emergency department at the request of her home health care nurse. The home health care provider essentially observed a syncopal episode with prolonged alteration of consciousness. She stated that the patient vomited her hands sure. After that she was unresponsive. She remained with her normal color and respiratory rate. However she was not responding to "ice cubes on her forehead for 5-10 minutes". The nurse's aide did not report any obvious seizure activity. She was transported via EMS for further evaluation. The daughter is here as well. The daughter states that the patient had a syncopal episode "a long time ago. Apparently additionally she has a history of pulmonary embolism. She was placed Eliquis but this was discontinued after she had an intracranial hemorrhage. She has a left hemiparesis. She is ordinarily able to ambulate with a cane. She is very weak at this time in general. -: Sudden Severity scale (0 -10): 0 Quality: other (no pain complaint) Associated Symptoms: denies other symptoms (patient not voicing any complaints however she is debilitated) - Related Data Home Medications Medication Instructions Recorded Confirmed Last Taken Mirtazapine [Remeron] 15 mg PO QPM 07/07/18 08/19/18 Unknown QUEtiapine [SEROquel] 25 mg PO HS 07/07/18 08/19/18 Unknown Aspirin EC [Aspirin Enteric Coated 81 mg PO QAM 08/19/18 08/19/18 Unknown TAB] Bisacodyl [Dulcolax suppos] 10 mg AL QHS PRN 08/19/18 08/19/18 Unknown Lisinopril [Zestril TAB] 5 mg PO QPM 08/19/18 08/19/18 Unknown Nitroglycerin [Nitro Dur] 0.4 mg TD DAILY@0600 08/19/18 08/19/18 Unknown Previous Rx's Medication Instructions Recorded Last Taken Type AtorvaSTATin [Lipitor] 40 mg PO QHS #30 tablet 07/11/18 Unknown Rx Carvedilol [Coreg] 6.25 mg PO BID tablet 07/11/18 Unknown Rx Apixaban [Eliquis] 5 mg PO BID #74 tablet 08/03/18 Unknown Rx Allergies Allergy/AdvReac Type Severity Reaction Status Date / Time Penicillins Allergy Mild Rash Verified 07/07/18 09:42 ED Review of Systems ROS: Stated complaint: LEG PAIN Other details as noted in HPI Comment: Unobtainable due to pts medical conditions ED Past Medical Hx - Past Medical History Hx Hypertension: Yes Hx Congestive Heart Failure: Yes Hx Deep Vein Thrombosis: No Hx Psychiatric Treatment: Yes (DEMENTIA) - Surgical History Hx Pacemaker: No Hx Internal Defibrillator: No - Social History Smoking Status: Never Smoker Substance Use Type: None - Medications Home Medications: Home Medications Medication Instructions Recorded Confirmed Last Taken Type Mirtazapine [Remeron] 15 mg PO QPM 07/07/18 08/19/18 Unknown History QUEtiapine [SEROquel] 25 mg PO HS 07/07/18 08/19/18 Unknown History AtorvaSTATin [Lipitor] 40 mg PO QHS #30 tablet 07/11/18 08/19/18 Unknown Rx Carvedilol [Coreg] 6.25 mg PO BID tablet 07/11/18 08/19/18 Unknown Rx Apixaban [Eliquis] 5 mg PO BID #74 tablet 08/03/18 08/19/18 Unknown Rx Aspirin EC [Aspirin Enteric Coated 81 mg PO QAM 08/19/18 08/19/18 Unknown History TAB] Bisacodyl [Dulcolax suppos] 10 mg AL QHS PRN 08/19/18 08/19/18 Unknown History Lisinopril [Zestril TAB] 5 mg PO QPM 08/19/18 08/19/18 Unknown History Nitroglycerin [Nitro Dur] 0.4 mg TD DAILY@0600 08/19/18 08/19/18 Unknown History ED Physical Exam - General Limitations: Altered Mental Status, Physical Limitation General appearance: alert, in no apparent distress - Head Head exam: Present: atraumatic, normocephalic - Eye Eye exam: Present: normal appearance, PERRL, EOMI. Absent: scleral icterus - ENT ENT exam: Present: mucous membranes moist - Neck Neck exam: Present: normal inspection. Absent: tenderness, meningismus - Respiratory Respiratory exam: Present: normal lung sounds bilaterally. Absent: respiratory distress - Cardiovascular Cardiovascular Exam: Present: regular rate, normal rhythm. Absent: systolic murmur, diastolic murmur, rubs, gallop - GI/Abdominal GI/Abdominal exam: Present: soft, normal bowel sounds. Absent: distended, tenderness, guarding, rebound - Extremities Exam Extremities exam: Present: other (retracted right upper extremity) - Back Exam Back exam: Present: normal inspection - Neurological Exam Neurological exam: Present: altered (not well oriented), motor sensory deficit - Psychiatric Psychiatric exam: Present: normal affect, normal mood - Skin Skin exam: Present: warm, dry, intact, normal color. Absent: rash ED Course Vital Signs 12/03/18 12/03/18 12:36 15:11 Temperature 97.4 F L Pulse Rate 72 76 Respiratory 18 17 Rate Blood Pressure 104/67 Blood Pressure 95/54 [Right] O2 Sat by Pulse 97 100 Oximetry - Reevaluation(s) Reevaluation #1: Discussed with Dr. Muro. The patient will be admitted to [facility] telemetry. She is noted to have a slightly low CO2. Lactic acid is pending. It do not think the patient is septic however thus far there is no source of infection. She does not have service. Further evaluation is pending. Her EKG is abnormal but not diagnostic of STEMI or definitely acute ischemia. 12/03/18 15:43 Reevaluation #2: CT the head is pending. 12/03/18 15:45 ED Medical Decision Making - Lab Data Result diagrams: 12/03/18 14:09 12/03/18 14:09 Laboratory Results - last 24 hr 12/03/18 12/03/18 14:09 14:09 WBC 9.9 RBC 4.31 Hgb 14.5 H Hct 43.9 H MCV 102 H MCH 34 H MCHC 33 RDW 16.9 H Lymph % (Auto) Manager Organizational [place] % (Auto) Manager Organizational Eos % (Auto) Manager Organizational Baso % (Auto) Manager Organizational Lymph # Manager Organizational [place] # Manager Organizational Eos # Manager Organizational Baso # Manager Organizational Seg Neutrophils % Manager Organizational Seg Neutrophils # Manager Organizational Sodium 138 Potassium 4.5 Chloride 106.2 Carbon Dioxide 18 L Anion Gap 18 BUN 10 Creatinine 0.5 L Estimated GFR > 60 BUN/Creatinine Ratio 20 Glucose 83 Calcium 10.2 Platelet count reported to me to be over 250 K - EKG Data -: EKG Interpreted by Me EKG shows normal: sinus rhythm Rate: normal - EKG Data Interpretation: other (1 PVC. Inferolateral inverted T waves.) - Radiology Data Radiology results: report reviewed interpreted by me: Chest x-ray no acute process Critical care attestation.: If time is entered above; I have spent that time in minutes in the direct care of this critically ill patient, excluding procedure time. ED Disposition Clinical Impression: Blood CO2 decreased Syncopal episodes Qualifiers: Syncope type: unspecified Qualified Code(s): R55 - Syncope and collapse Disposition: OP ADMIT IP TO THIS HOSP Is pt being admited?: Yes Does the pt Need Aspirin: Yes Condition: Stable Instructions: Syncope (ED) Referrals: SANJIV MESSER MD [Primary Care Provider] - 3-5 Days Time of Disposition: 15:46
[2018-12-03] MEDS ORDERED: BABY ASPIRIN PO ONE (15:48)
[2018-12-03 15:51] LABS: Total Cells Counted 100
--- NOTE | 2018-12-03 15:56 | Cat Scan Report ---
FINAL REPORT EXAM: CT HEAD/BRAIN WO CON HISTORY: Syncope COMPARISON: CT of the head performed on 08/19/2018 TECHNIQUE: Multiple contiguous axial images were obtained from the skullbase to the vertex without a dministration of IV contrast. FINDINGS: There is encephalomalacia in the right parietal lobe, likely due to prior infarct. There is no acute territorial infarct. There are patchy areas of decreased attenuation in the subcortical and periventr icular white matter, likely due to chronic microvascular ischemic changes. There is no parenchymal he morrhage or extra-axial fluid collection. There is no mass or mass effect. There is no acute territor ial infarct. The ventricles are midline. The subarachnoid spaces and basilar cisterns are clear. Ther e is no skull fracture. The paranasal sinuses and mastoid air cells are clear. IMPRESSION: No acute intracranial abnormality. 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 Chronic microvascular ischemic changes in the subcortical and periventricular white matter.
[2018-12-03 15:57] LABS: Basophils % (Manual) 0 % (0.0-1.8)
[2018-12-03 15:58] LABS: INR 0.77 (0.87-1.13)
[2018-12-03 15:58] LABS: Burr Cells 2+; Macrocytosis 1+; Ovalocytes 1+; Platelet Clumps Few; Platelet Estimate Consistent w Auto
[2018-12-03 15:59] LABS: Partial Thromboplastin Time 23.7 Sec. (24.2-36.6)
[2018-12-03 16:05] LABS: Platelet Count 272 K/mm3 (140-440)
[2018-12-03 16:08] LABS: Albumin 3.6 g/dL (3.9-5)
[2018-12-03 16:32] LABS: Alanine Aminotransferase 21 units/L (7-56)
[2018-12-03 16:33] LABS: Bilirubin,Direct < 0.2 mg/dL (0-0.2)
[2018-12-04] MEDS ORDERED: DILAUDID IV PRN (00:40)
[2018-12-04] MEDS ORDERED: PERCOCET 5/325 PO PRN (00:40)
[2018-12-04] MEDS ORDERED: SODIUM CHLORIDE FLUSH SYRINGE 10 ML IV PRN (00:40)
[2018-12-04] MEDS ORDERED: ZOFRAN IV PRN (00:40)
[2018-12-04] MEDS ORDERED: TYLENOL PO PRN (00:40)
[2018-12-04] MEDS ORDERED: DULCOLAX PR PRN (00:45)
[2018-12-04] MEDS ORDERED: ELIQUIS PO SCH (01:00)
[2018-12-04] MEDS: D5NS 1,000 ML IV SCH ×2 (05:54→22:09)
--- NOTE | 2018-12-04 07:43 | History and Physical Report ---
History of Present Illness Date of examination: 12/03/18 Date of admission: 12/03/18 17:36 Chief complaint: Passed out prior to arrival in ER History of present illness: 78-year-old female is brought to the emergency department by Home health aide. Patient apparently passed out after a episode of vomiting.No chest pain.Recovered consciousness slowly.No fever or chills.Was Lethargic initially in ER but came back to baseline in couple of Hours. Past Medical History Hx Hypertension: Yes Hx Congestive Heart Failure: Yes Hx Deep Vein Thrombosis: No Hx Psychiatric Treatment: Yes (DEMENTIA) Surgical History Hx Pacemaker: No Hx Internal Defibrillator: No Social History Smoking Status: Never Smoker Substance Use Type: None Medications Home Medications: Home Medications Medication Instructions Recorded Confirmed Last Taken Type Mirtazapine [Remeron] 15 mg PO QPM 07/07/18 08/19/18 Unknown History QUEtiapine [SEROquel] 25 mg PO HS 07/07/18 08/19/18 Unknown History AtorvaSTATin [Lipitor] 40 mg PO QHS #30 tablet 07/11/18 08/19/18 Unknown Rx Carvedilol [Coreg] 6.25 mg PO BID tablet 07/11/18 08/19/18 Unknown Rx Apixaban [Eliquis] 5 mg PO BID #74 tablet 08/03/18 08/19/18 Unknown Rx Aspirin EC [Aspirin Enteric Coated 81 mg PO QAM 08/19/18 08/19/18 Unknown History TAB] Bisacodyl [Dulcolax suppos] 10 mg VT QHS PRN 08/19/18 08/19/18 Unknown History Lisinopril [Zestril TAB] 5 mg PO QPM 08/19/18 08/19/18 Unknown History Nitroglycerin [Nitro Dur] 0.4 mg TD DAILY@0600 08/19/18 08/19/18 Unknown History Review of Systems ROS: Stated complaint: LEG PAIN Other details as noted in HPI Comment: Unobtainable due to pts medical conditions Medications and Allergies Allergies Allergy/AdvReac Type Severity Reaction Status Date / Time Penicillins Allergy Mild Rash Verified 07/07/18 09:42 Home Medications Medication Instructions Recorded Confirmed Last Taken Type Mirtazapine [Remeron] 15 mg PO QPM 07/07/18 12/04/18 12/02/18 21:00 History 15mg QUEtiapine [SEROquel] 25 mg PO HS 07/07/18 12/04/18 12/02/18 21:00 History 25mg AtorvaSTATin [Lipitor] 40 mg PO QHS #30 tablet 07/11/18 12/04/18 12/02/18 20:00 Rx 40mg Carvedilol [Coreg] 6.25 mg PO BID tablet 07/11/18 12/04/18 12/02/18 20:00 Rx 6.25mg Apixaban [Eliquis] 5 mg PO BID #74 tablet 08/03/18 12/04/18 12/03/18 09:00 Rx 5mg Aspirin EC [Aspirin Enteric Coated 81 mg PO QAM 08/19/18 12/04/18 12/02/18 09:00 History TAB] 81mg Bisacodyl [Dulcolax suppos] 10 mg VT QHS PRN 08/19/18 12/04/18 Unknown History Lisinopril [Zestril TAB] 5 mg PO QPM 08/19/18 12/04/18 12/02/18 18:00 History 5mg Nitroglycerin [Nitro Dur] 0.4 mg TD DAILY@0600 08/19/18 12/04/18 Unknown History Active Meds: Active Medications Acetaminophen (Tylenol) 650 mg PO Q4H PRN PRN Reason: Pain MILD(1-3)/Fever >100.5/SOLIS Apixaban (Eliquis) 5 mg PO BID [facility]; Protocol Aspirin (Halfprin Ec) 81 mg PO QAM [facility] Atorvastatin Calcium (Lipitor) 40 mg PO QHS [facility] Bisacodyl (Dulcolax) 10 mg VT QHS PRN PRN Reason: Constipation Carvedilol (Coreg) 6.25 mg PO BID [facility] Famotidine (Pepcid) 20 mg PO BID [facility] Hydromorphone HCl (Dilaudid) 0.5 mg IV Q3H PRN PRN Reason: Pain , Severe (7-10) Dextrose/Sodium Chloride (D5ns) 1,000 mls @ 75 mls/hr IV DIRECT [facility] Last Admin: 12/04/18 05:54 Dose: 75 mls/hr Documented by: Lisinopril (Zestril) 5 mg PO QPM [facility] Mirtazapine (Remeron) 15 mg PO QPM [facility] Ondansetron HCl (Zofran) 4 mg IV Q8H PRN PRN Reason: Nausea And Vomiting Oxycodone/Acetaminophen (Percocet 5/325) 1 tab PO Q6H PRN PRN Reason: Pain, Moderate (4-6) Quetiapine Fumarate (Seroquel) 25 mg PO HS [facility] Sodium Chloride (Sodium Chloride Flush Syringe 10 Ml) 10 ml IV BID [facility] Sodium Chloride (Sodium Chloride Flush Syringe 10 Ml) 10 ml IV PRN PRN PRN Reason: LINE FLUSH Exam - Constitutional Vitals: Temp Pulse Resp BP Pulse Ox 97.4 F L 78 20 111/69 94 12/04/18 02:35 12/04/18 02:35 12/04/18 02:35 12/04/18 02:35 12/04/18 02:30 General appearance: Present: no acute distress, well-nourished - EENT Eyes: Present: PERRL ENT: hearing intact, clear oral mucosa - Neck Neck: Present: supple, normal ROM - Respiratory Respiratory effort: normal Respiratory: bilateral: CTA - Cardiovascular Heart rate: 78 Rhythm: regular Heart Sounds: Present: S1 & S2. Absent: rub, click - Extremities Extremities: no ischemia, pulses intact, pulses symmetrical, No edema Peripheral Pulses: within normal limits - Abdominal General gastrointestinal: Present: soft, non-tender, non-distended, normal bowel sounds Female genitourinary: Present: normal - Integumentary Integumentary: Present: clear, warm, dry - Musculoskeletal Musculoskeletal: gait normal, strength equal bilaterally - Psychiatric Psychiatric: appropriate mood/affect, intact judgment & insight - Neurologic Neurologic: CNII-XII intact, moves all extremities - Allied Health Allied health notes reviewed: nursing, case management Results - Labs CBC & Chem 7: 12/03/18 14:09 12/03/18 14:09 Labs: Laboratory Last Values WBC 9.9 K/mm3 (4.5-11.0) 12/03/18 14:09 RBC 4.31 M/mm3 (3.65-5.03) 12/03/18 14:09 Hgb 14.5 gm/dl (10.1-14.3) H 12/03/18 14:09 Hct 43.9 % (30.3-42.9) H 12/03/18 14:09 MCV 102 fl (79-97) H 12/03/18 14:09 MCH 34 pg (28-32) H 12/03/18 14:09 MCHC 33 % (30-34) 12/03/18 14:09 RDW 16.9 % (13.2-15.2) H 12/03/18 14:09 Plt Count 272 K/mm3 (140-440) 12/03/18 14:09 Lymph % (Auto) [place] Machine Operator 12/03/18 14:09 [place] % (Auto) Hoop Flaring Machine Operator 12/03/18 14:09 Eos % (Auto) [place] Machine Operator 12/03/18 14:09 Baso % (Auto) [place] Machine Operator 12/03/18 14:09 Lymph # [place] Machine Operator 12/03/18 14:09 [place] # Hoop Flaring Machine Operator 12/03/18 14:09 Eos # [place] Fl[place] Machine Operator 12/03/18 14:09 Baso # [place] Machine Operator 12/03/18 14:09 Add Manual Diff Complete 12/03/18 14:09 Total Counted 100 12/03/18 14:09 Seg Neutrophils % [place] Machine Operator 12/03/18 14:09 Seg Neuts % (Manual) 87.0 % (40.0-70.0) H 12/03/18 14:09 Band Neutrophils % 0 % 12/03/18 14:09 Lymphocytes % (Manual) 8.0 % (13.4-35.0) L 12/03/18 14:09 Reactive Lymphs % (Man) 0 % 12/03/18 14:09 Monocytes % (Manual) 3.0 % (0.0-7.3) 12/03/18 14:09 Eosinophils % (Manual) 2.0 % (0.0-4.3) 12/03/18 14:09 Basophils % (Manual) 0 % (0.0-1.8) 12/03/18 14:09 Metamyelocytes % 0 % 12/03/18 14:09 Myelocytes % 0 % 12/03/18 14:09 Promyelocytes % 0 % 12/03/18 14:09 Blast Cells % 0 % 12/03/18 14:09 Nucleated RBC % Not Reportable 12/03/18 14:09 Seg Neutrophils # [place] Machine Operator 12/03/18 14:09 Seg Neutrophils # Man 8.6 K/mm3 (1.8-7.7) H 12/03/18 14:09 Band Neutrophils # 0.0 K/mm3 12/03/18 14:09 Lymphocytes # (Manual) 0.8 K/mm3 (1.2-5.4) L 12/03/18 14:09 Abs React Lymphs (Man) 0.0 K/mm3 12/03/18 14:09 Monocytes # (Manual) 0.3 K/mm3 (0.0-0.8) 12/03/18 14:09 Eosinophils # (Manual) 0.2 K/mm3 (0.0-0.4) 12/03/18 14:09 Basophils # (Manual) 0.0 K/mm3 (0.0-0.1) 12/03/18 14:09 Metamyelocytes # 0.0 K/mm3 12/03/18 14:09 Myelocytes # 0.0 K/mm3 12/03/18 14:09 Promyelocytes # 0.0 K/mm3 12/03/18 14:09 Blast Cells # 0.0 K/mm3 12/03/18 14:09 WBC Morphology Not Reportable 12/03/18 14:09 Hypersegmented Neuts Not Reportable 12/03/18 14:09 Hyposegmented Neuts Not Reportable 12/03/18 14:09 Hypogranular Neuts Not Reportable 12/03/18 14:09 Smudge Cells Not Reportable 12/03/18 14:09 Toxic Granulation Not Reportable 12/03/18 14:09 Toxic Vacuolation Not Reportable 12/03/18 14:09 Dohle Bodies Not Reportable 12/03/18 14:09 Pelger-Huet Anomaly Not Reportable 12/03/18 14:09 Svetlana Rods Not Reportable 12/03/18 14:09 Platelet Estimate Consistent w auto 12/03/18 14:09 Clumped Platelets Few 12/03/18 14:09 Plt Clumps, EDTA Not Reportable 12/03/18 14:09 Large Platelets Not Reportable 12/03/18 14:09 Giant Platelets Not Reportable 12/03/18 14:09 Platelet Satelliting Not Reportable 12/03/18 14:09 Plt Morphology Comment Not Reportable 12/03/18 14:09 RBC Morphology Not Reportable 12/03/18 14:09 Dimorphic RBCs Not Reportable 12/03/18 14:09 Polychromasia Not Reportable 12/03/18 14:09 Hypochromasia Not Reportable 12/03/18 14:09 Poikilocytosis Not Reportable 12/03/18 14:09 Anisocytosis Not Reportable 12/03/18 14:09 Microcytosis Not Reportable 12/03/18 14:09 Macrocytosis 1+ 12/03/18 14:09 Spherocytes Not Reportable 12/03/18 14:09 Pappenheimer Bodies Not Reportable 12/03/18 14:09 Sickle Cells Not Reportable 12/03/18 14:09 Target Cells Not Reportable 12/03/18 14:09 Tear Drop Cells Not Reportable 12/03/18 14:09 Ovalocytes 1+ 12/03/18 14:09 Helmet Cells Not Reportable 12/03/18 14:09 Ambrocio-Gordon Bodies Not Reportable 12/03/18 14:09 [place]y Rings Not Reportable 12/03/18 14:09 Mary Cells 2+ 12/03/18 14:09 Bite Cells Not Reportable 12/03/18 14:09 Crenated Cell Not Reportable 12/03/18 14:09 Elliptocytes Not Reportable 12/03/18 14:09 Acanthocytes (Spur) Not Reportable 12/03/18 14:09 Rouleaux Not Reportable 12/03/18 14:09 Hemoglobin C Crystals Not Reportable 12/03/18 14:09 Schistocytes Not Reportable 12/03/18 14:09 Malaria parasites Not Reportable 12/03/18 14:09 Robert Bodies Not Reportable 12/03/18 14:09 Hem Pathologist Commnt No 12/03/18 14:09 PT 11.1 Sec. (12.2-14.9) L 12/03/18 15:13 INR 0.77 (0.87-1.13) L 12/03/18 15:13 APTT 23.7 Sec. (24.2-36.6) L 12/03/18 15:13 Sodium 138 mmol/L (137-145) 12/03/18 14:09 Potassium 4.5 mmol/L (3.6-5.0) 12/03/18 14:09 Chloride 106.2 mmol/L (98-107) 12/03/18 14:09 Carbon Dioxide 18 mmol/L (22-30) L 12/03/18 14:09 Anion Gap 18 mmol/L 12/03/18 14:09 BUN 10 mg/dL (7-17) 12/03/18 14:09 Creatinine 0.5 mg/dL (0.7-1.2) L 12/03/18 14:09 Estimated GFR > 60 ml/min 12/03/18 14:09 BUN/Creatinine Ratio 20 % 12/03/18 14:09 Glucose 83 mg/dL (65-100) 12/03/18 14:09 Lactic Acid 1.30 mmol/L (0.7-2.0) 12/03/18 15:13 Calcium 10.2 mg/dL (8.4-10.2) 12/03/18 14:09 Magnesium 2.30 mg/dL (1.7-2.3) 12/03/18 15:13 Total Bilirubin < 0.20 mg/dL (0.1-1.2) 12/03/18 15:13 Direct Bilirubin < 0.2 mg/dL (0-0.2) 12/03/18 15:13 Indirect Bilirubin 0.0 mg/dL 12/03/18 15:13 AST 32 units/L (5-40) 12/03/18 15:13 ALT 21 units/L (7-56) 12/03/18 15:13 Alkaline Phosphatase 76 units/L (35-129) 12/03/18 15:13 Troponin T < 0.010 ng/mL (0.00-0.029) 12/03/18 15:13 NT-Pro-B Natriuret Pep 424.4 pg/mL (0-900) 12/03/18 15:13 Total Protein 7.1 g/dL (6.3-8.2) 12/03/18 15:13 Albumin 3.6 g/dL (3.9-5) L 12/03/18 15:13 Albumin/Globulin Ratio 0.9 % 12/03/18 15:13 Short CBC 12/03/18 Range/Units 14:09 WBC 9.9 (4.5-11.0) K/mm3 Hgb 14.5 H (10.1-14.3) gm/dl Hct 43.9 H (30.3-42.9) % Plt Count 272 (140-440) K/mm3 BMP 12/03/18 14:09 Sodium 138 Potassium 4.5 Chloride 106.2 Carbon Dioxide 18 L BUN 10 Creatinine 0.5 L Glucose 83 Calcium 10.2 Cardiac Enzymes 12/03/18 Range/Units 15:13 Troponin T < 0.010 (0.00-0.029) ng/mL Liver Function 12/03/18 Range/Units 15:13 Total Bilirubin < 0.20 (0.1-1.2) mg/dL Direct Bilirubin < 0.2 (0-0.2) mg/dL AST 32 (5-40) units/L ALT 21 (7-56) units/L Alkaline Phosphatase 76 (35-129) units/L Albumin 3.6 L (3.9-5) g/dL - Imaging and Cardiology EKG: report reviewed Imaging and Cardiology: CXR CONCLUSION: Limited, though unremarkable chest radiograph, as described Ct Head IMPRESSION: No acute intracranial abnormality. 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 Chronic microvascular ischemic changes in the subcortical and periventricular white matter. Assessment and Plan Advance Directives: Yes (Full code) VTE prophylaxis?: Chemical - Patient Problems (1) Syncope and collapse Current Visit: Yes Status: Acute Plan to address problem: Syncope work up Lexiscan ECHO and CDS in AM (2) Deep vein thrombosis (DVT) of axillary vein of left upper extremity Current Visit: No Status: Chronic Qualifiers: Chronicity: acute Qualified Code(s): I82.A12 - Acute embolism and thrombosis of left axillary vein Plan to address problem: On Eliquis for same and PE in past (3) HTN (hypertension) Current Visit: Yes Status: Chronic Qualifiers: Hypertension type: essential hypertension Qualified Code(s): I10 - Essential (primary) hypertension Plan to address problem: COnt antihypertensives (4) HLD (hyperlipidemia) Current Visit: Yes Status: Chronic Qualifiers: Hyperlipidemia type: mixed hyperlipidemia Qualified Code(s): E78.2 - Mixed hyperlipidemia Plan to address problem: Cont statins (5) Bipolar 1 disorder Current Visit: Yes Status: Acute Plan to address problem: On seroquel (6) DVT prophylaxis Current Visit: No Status: Acute Plan to address problem: On Eliquis
[2018-12-04 07:48] LABS: Alanine Aminotransferase 19 units/L (7-56); Albumin 3.4 g/dL (3.9-5); BUN/Creatinine Ratio 17; Blood Urea Nitrogen 10 mg/dL (7-17); Calcium 10.5 mg/dL (8.4-10.2); Hemolysis Index 14
[2018-12-04] MEDS: COREG PO SCH ×2 (10:26→22:15)
[2018-12-04] MEDS: PEPCID PO SCH ×2 (10:26→22:15)
[2018-12-04] MEDS: HALFPRIN EC PO SCH (10:26)
[2018-12-04] MEDS: ELIQUIS PO SCH ×2 (10:26→22:30)
--- NOTE | 2018-12-04 11:10 | Vascular Lab Report ---
FINAL REPORT EXAM: VL CAROTID DUPLEX BILAT HISTORY: syncope COMPARISON: None. TECHNIQUE: Duplex Doppler ultrasound of the carotid arteries was performed. FINDINGS: There is a small amount of atherosclerotic plaque in the right common carotid artery and internal car otid artery causing less than 50 percent stenosis. There is antegrade flow in the right vertebral art maxine. There is a small amount of atherosclerotic plaque in the left common carotid artery and internal umanzor tid artery causing less than 50 percent stenosis. There is antegrade flow in the left vertebral arter y. Peak systolic velocities (cm/sec) are as follows: Right common carotid artery: 73.1 Right internal carotid artery: 69 Right external carotid artery: 49.2 Left common carotid artery: 75 Left internal carotid artery: 63.6 Left external carotid artery: 94 Peak systolic velocity ratio between the right internal carotid artery and the right common carotid a rtery: 0.94 Peak systolic velocity ratio between the left internal carotid artery and left common carotid artery: 0.85 IMPRESSION: Small amount of atherosclerotic disease in the bilateral carotid arteries causing less than 50 percen t stenosis.
--- NOTE | 2018-12-04 14:05 | Progress Note ---
Assessment and Plan Assessment and plan: (1) Syncope and collapse - CT head was normal, carotid Doppler less than 50% stenoses - Stress test was considered by cardiology because she has a recent stress test which was negative - Echo is pending, neurology consulted (2) Deep vein thrombosis (DVT) of axillary vein of left upper extremity On Eliquis for same and PE in past (3) HTN (hypertension) COnt antihypertensives (4) HLD (hyperlipidemia) Cont statins (5) Bipolar 1 disorder On seroquel (6) DVT prophylaxis On Eliquis Mild malnutrition - Nutrition consult Disposition; possible discharge tomorrow History Interval history: Patient was seen and evaluated this morning, patient is confused per her granddaughter that is her baseline. Hospitalist Physical - Physical exam Narrative exam: Not in cardiopulmonary distress. The patient is obese. Vital signs as documented. Head exam is unremarkable. No scleral icterus . Neck is without jugular venous distension, thyromegaly, or carotid bruits. Lungs are clear to auscultation. Cardiac exam reveals regular rate and Rhythm. Abdominal exam reveals normal bowel sounds, no masses, no organomegaly and no aortic enlargement. Extremities are nonedematous and both femoral and pedal pulses are normal. SLOT SUPERVISOR: Confused. LUE weakness. - Constitutional Vitals: Temp Pulse Resp BP Pulse Ox 97.6 F 79 16 133/82 93 12/04/18 08:02 12/04/18 10:26 12/04/18 10:00 12/04/18 10:26 12/04/18 07:25 General appearance: Present: no acute distress, well-nourished Results - Labs CBC & Chem 7: 12/03/18 14:09 12/04/18 06:33 Labs: Laboratory Last Values WBC 9.9 K/mm3 (4.5-11.0) 12/03/18 14:09 RBC 4.31 M/mm3 (3.65-5.03) 12/03/18 14:09 Hgb 14.5 gm/dl (10.1-14.3) H 12/03/18 14:09 Hct 43.9 % (30.3-42.9) H 12/03/18 14:09 MCV 102 fl (79-97) H 12/03/18 14:09 MCH 34 pg (28-32) H 12/03/18 14:09 MCHC 33 % (30-34) 12/03/18 14:09 RDW 16.9 % (13.2-15.2) H 12/03/18 14:09 Plt Count 272 K/mm3 (140-440) 12/03/18 14:09 Lymph % (Auto) Academic Support Specialist 12/03/18 14:09 [place] % (Auto) Academic Support Specialist 12/03/18 14:09 Eos % (Auto) Academic Support Specialist 12/03/18 14:09 Baso % (Auto) Academic Support Specialist 12/03/18 14:09 Lymph # Academic Support Specialist 12/03/18 14:09 [place] # Academic Support Specialist 12/03/18 14:09 Eos # Academic Support Specialist 12/03/18 14:09 Baso # Academic Support Specialist 12/03/18 14:09 Add Manual Diff Complete 12/03/18 14:09 Total Counted 100 12/03/18 14:09 Seg Neutrophils % Academic Support Specialist 12/03/18 14:09 Seg Neuts % (Manual) 87.0 % (40.0-70.0) H 12/03/18 14:09 Band Neutrophils % 0 % 12/03/18 14:09 Lymphocytes % (Manual) 8.0 % (13.4-35.0) L 12/03/18 14:09 Reactive Lymphs % (Man) 0 % 12/03/18 14:09 Monocytes % (Manual) 3.0 % (0.0-7.3) 12/03/18 14:09 Eosinophils % (Manual) 2.0 % (0.0-4.3) 12/03/18 14:09 Basophils % (Manual) 0 % (0.0-1.8) 12/03/18 14:09 Metamyelocytes % 0 % 12/03/18 14:09 Myelocytes % 0 % 12/03/18 14:09 Promyelocytes % 0 % 12/03/18 14:09 Blast Cells % 0 % 12/03/18 14:09 Nucleated RBC % Not Reportable 12/03/18 14:09 Seg Neutrophils # Academic Support Specialist 12/03/18 14:09 Seg Neutrophils # Man 8.6 K/mm3 (1.8-7.7) H 12/03/18 14:09 Band Neutrophils # 0.0 K/mm3 12/03/18 14:09 Lymphocytes # (Manual) 0.8 K/mm3 (1.2-5.4) L 12/03/18 14:09 Abs React Lymphs (Man) 0.0 K/mm3 12/03/18 14:09 Monocytes # (Manual) 0.3 K/mm3 (0.0-0.8) 12/03/18 14:09 Eosinophils # (Manual) 0.2 K/mm3 (0.0-0.4) 12/03/18 14:09 Basophils # (Manual) 0.0 K/mm3 (0.0-0.1) 12/03/18 14:09 Metamyelocytes # 0.0 K/mm3 12/03/18 14:09 Myelocytes # 0.0 K/mm3 12/03/18 14:09 Promyelocytes # 0.0 K/mm3 12/03/18 14:09 Blast Cells # 0.0 K/mm3 12/03/18 14:09 WBC Morphology Not Reportable 12/03/18 14:09 Hypersegmented Neuts Not Reportable 12/03/18 14:09 Hyposegmented Neuts Not Reportable 12/03/18 14:09 Hypogranular Neuts Not Reportable 12/03/18 14:09 Smudge Cells Not Reportable 12/03/18 14:09 Toxic Granulation Not Reportable 12/03/18 14:09 Toxic Vacuolation Not Reportable 12/03/18 14:09 Dohle Bodies Not Reportable 12/03/18 14:09 Pelger-Huet Anomaly Not Reportable 12/03/18 14:09 Svetlana Rods Not Reportable 12/03/18 14:09 Platelet Estimate Consistent w auto 12/03/18 14:09 Clumped Platelets Few 12/03/18 14:09 Plt Clumps, EDTA Not Reportable 12/03/18 14:09 Large Platelets Not Reportable 12/03/18 14:09 Giant Platelets Not Reportable 12/03/18 14:09 Platelet Satelliting Not Reportable 12/03/18 14:09 Plt Morphology Comment Not Reportable 12/03/18 14:09 RBC Morphology Not Reportable 12/03/18 14:09 Dimorphic RBCs Not Reportable 12/03/18 14:09 Polychromasia Not Reportable 12/03/18 14:09 Hypochromasia Not Reportable 12/03/18 14:09 Poikilocytosis Not Reportable 12/03/18 14:09 Anisocytosis Not Reportable 12/03/18 14:09 Microcytosis Not Reportable 12/03/18 14:09 Macrocytosis 1+ 12/03/18 14:09 Spherocytes Not Reportable 12/03/18 14:09 Pappenheimer Bodies Not Reportable 12/03/18 14:09 Sickle Cells Not Reportable 12/03/18 14:09 Target Cells Not Reportable 12/03/18 14:09 Tear Drop Cells Not Reportable 12/03/18 14:09 Ovalocytes 1+ 12/03/18 14:09 Helmet Cells Not Reportable 12/03/18 14:09 Ambrocio-Prospect Bodies Not Reportable 12/03/18 14:09 Gorman Rings Not Reportable 12/03/18 14:09 Mary Cells 2+ 12/03/18 14:09 Bite Cells Not Reportable 12/03/18 14:09 Crenated Cell Not Reportable 12/03/18 14:09 Elliptocytes Not Reportable 12/03/18 14:09 Acanthocytes (Spur) Not Reportable 12/03/18 14:09 Rouleaux Not Reportable 12/03/18 14:09 Hemoglobin C Crystals Not Reportable 12/03/18 14:09 Schistocytes Not Reportable 12/03/18 14:09 Malaria parasites Not Reportable 12/03/18 14:09 Robert Bodies Not Reportable 12/03/18 14:09 Hem Pathologist Commnt No 12/03/18 14:09 PT 11.1 Sec. (12.2-14.9) L 12/03/18 15:13 INR 0.77 (0.87-1.13) L 12/03/18 15:13 APTT 23.7 Sec. (24.2-36.6) L 12/03/18 15:13 Sodium 142 mmol/L (137-145) 12/04/18 06:33 Potassium 4.4 mmol/L (3.6-5.0) 12/04/18 06:33 Chloride 106.0 mmol/L (98-107) 12/04/18 06:33 Carbon Dioxide 27 mmol/L (22-30) D 12/04/18 06:33 Anion Gap 13 mmol/L 12/04/18 06:33 BUN 10 mg/dL (7-17) 12/04/18 06:33 Creatinine 0.6 mg/dL (0.7-1.2) L 12/04/18 06:33 Estimated GFR > 60 ml/min 12/04/18 06:33 BUN/Creatinine Ratio 17 % 12/04/18 06:33 Glucose 96 mg/dL (65-100) 12/04/18 06:33 Lactic Acid 1.30 mmol/L (0.7-2.0) 12/03/18 15:13 Calcium 10.5 mg/dL (8.4-10.2) H 12/04/18 06:33 Magnesium 2.30 mg/dL (1.7-2.3) 12/03/18 15:13 Total Bilirubin 0.30 mg/dL (0.1-1.2) 12/04/18 06:33 Direct Bilirubin < 0.2 mg/dL (0-0.2) 12/03/18 15:13 Indirect Bilirubin 0.0 mg/dL 12/03/18 15:13 AST 22 units/L (5-40) 12/04/18 06:33 ALT 19 units/L (7-56) 12/04/18 06:33 Alkaline Phosphatase 72 units/L (35-129) 12/04/18 06:33 Troponin T < 0.010 ng/mL (0.00-0.029) 12/04/18 06:37 NT-Pro-B Natriuret Pep 424.4 pg/mL (0-900) 12/03/18 15:13 Total Protein 6.8 g/dL (6.3-8.2) 12/04/18 06:33 Albumin 3.4 g/dL (3.9-5) L 12/04/18 06:33 Albumin/Globulin Ratio 1.0 % 12/04/18 06:33 Nutrition/Malnutrition Assess - Dietary Evaluation Nutrition/Malnutrition Findings: Nutrition Notes Start: 12/04/18 10:34 Freq: Status: Active Protocol: Document 12/04/18 10:34 OH (Rec: 12/04/18 10:58 OH [id number]) Nutrition Notes 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 Pt . with skin risk of 18. Pt had just returned from stress test which wasn't completed. Daughter in the room. She reported that pt has a caregiver at home. Daughter is a ST. Pt. consuming Ensure/ Boost daily at home. Family requested it be provided on her tray. Will order for x1 daily and increase prn. Daughter requests no milk for patient as she doesn't care for it. Pt enjoys snacks/ sweets per daughter. She requested pudding/fruit on the tray. Per daughter pt consumes regular consistency meals at home no swallowing/ chewing difficulty. Pt. noted to have poor appetite prior to admission. Percent of energy/protein needs met: <50/50% Burn Absent Trauma Absent GI Symptoms None Current % PO Poor (25-49%) #1 Nutrition Diagnosis Inadequate oral intake Etiology poor appetite/dementia As Evidenced by Signs and Symptoms consumption of <50% of kcals/ PRO Is patient on ventilator? No Is Patient Ambulatory and/or Out of Bed No REE-([facility]-confined to bed) 0753.016 Calculation Used for Recommendations [facility] Additional Notes FLUID: 1 mL/kcal PRO: 1-1.2 G/KG/IBW (59-71 G/ DAY) Nutrition Intervention Change Diet Order: cont cardiac Add Supplement/Snack (indicate name/kcal ensure Enlive /protein ) Provides kCal: 350 Provides Protein (gm) 20 Goal #1 Intake of >75% kcals/protein at meals Goal #2 Initiate ONS Q DAY Anticipated Discharge Needs: Unable to determine at this time Follow-Up By: 12/07/18 Additional Comments F/U po intake and ONS tolerance
--- NOTE | 2018-12-04 15:47 | Progress Note ---
Subjective Date of service: 12/04/18 Interval history: neurology consult done spoke to staff she had advanced Alzheimers Disease this could represenr seizure she has prior stroke with lerft sided hemiparesis advise consider anticonvulsant Objective - Vital Sign Vital Signs - 12hr 12/04/18 12/04/18 12/04/18 07:25 08:02 10:00 Temperature 97.6 F Pulse Rate 79 79 Respiratory 16 16 Rate Blood Pressure 133/82 O2 Sat by Pulse 93 Oximetry 12/04/18 10:26 Temperature Pulse Rate 79 Respiratory Rate Blood Pressure 133/82 O2 Sat by Pulse Oximetry - Laboratory Findings CBC and BMP: 12/03/18 14:09 12/04/18 06:33 Abnormal Lab Findings: Abnormal Labs 12/03/18 12/03/18 12/03/18 14:09 14:09 15:13 Hgb 14.5 H Hct 43.9 H MCV 102 H MCH 34 H RDW 16.9 H Seg Neuts % (Manual) 87.0 H Lymphocytes % (Manual) 8.0 L Seg Neutrophils # Man 8.6 H Lymphocytes # (Manual) 0.8 L PT 11.1 L INR 0.77 L APTT 23.7 L Carbon Dioxide 18 L Creatinine 0.5 L Calcium Albumin 12/03/18 12/04/18 15:13 06:33 Hgb Hct MCV MCH RDW Seg Neuts % (Manual) Lymphocytes % (Manual) Seg Neutrophils # Man Lymphocytes # (Manual) PT INR APTT Carbon Dioxide Creatinine 0.6 L Calcium 10.5 H Albumin 3.6 L 3.4 L
[2018-12-04] MEDS ORDERED: REMERON PO SCH (18:00)
[2018-12-04] MEDS ORDERED: ZESTRIL PO SCH (18:00)
[2018-12-04] MEDS ORDERED: PAXIL PO SCH (20:00)
[2018-12-04] MEDS: SODIUM CHLORIDE FLUSH SYRINGE 10 ML IV SCH (22:10)
[2018-12-05 05:55] LABS: Basophils % (Auto) 0.5 % (0.0-1.8); Eosinophils # (Auto) 0.1 K/mm3 (0.0-0.4); Eosinophils % (Auto) 2.8 % (0.0-4.3); Hematocrit 37.6 % (30.3-42.9); Hemoglobin 12.3 gm/dl (10.1-14.3); Lymphocytes # (Auto) 1.5 K/mm3 (1.2-5.4); Lymphocytes % (Auto) 40.5 % (13.4-35.0); Mean Corpuscular HGB Conc 33 % (30-34); Mean Corpuscular Volume 103 fl (79-97); Monocytes # (Auto) 0.5 K/mm3 (0.0-0.8); Monocytes % (Auto) 13.7 % (0.0-7.3); Platelet Count 255 K/mm3 (140-440); Red Blood Count 3.66 M/mm3 (3.65-5.03); Red Cell Distribution Width 17.1 % (13.2-15.2)
[2018-12-05 06:22] LABS: Alanine Aminotransferase 13 units/L (7-56); Albumin 3.3 g/dL (3.9-5); BUN/Creatinine Ratio 15; Blood Urea Nitrogen 9 mg/dL (7-17); Calcium 9.6 mg/dL (8.4-10.2); Hemolysis Index 9
[2018-12-05] MEDS: SODIUM CHLORIDE FLUSH SYRINGE 10 ML IV SCH (10:00)
[2018-12-05] MEDS: COREG PO SCH (11:03)
[2018-12-05] MEDS: HALFPRIN EC PO SCH (11:03)
[2018-12-05] MEDS: PEPCID PO SCH (11:03)
[2018-12-05] MEDS: ELIQUIS PO SCH (11:26)
--- NOTE | 2018-12-05 11:32 | Discharge Summary ---
Providers - Providers Date of Admission: 12/03/18 17:36 Date of discharge: 12/05/18 Attending physician: YAEL HANNA 12/04/18 00:40 Physical Therapy Evaluation and Treat [CONS] Routine Comment: Reason For Exam: debility 12/04/18 07:41 Consult to Physician [CONS] Routine Comment: called office/rabia Consulting Provider: YAMILE STONER Physician Instructions: Reason For Exam: prolonged syncopal episode Primary care physician: SANJIV MESSER Hospitalization Reason for admission: syncope with collapse Condition: Stable Pertinent studies: CT scan of the head was unremarkable for any acute event Carotid Doppler that showed less than 50% stenosis Echocardiogram on the pending results Procedures: None Hospital course: Patient is a 78-year-old female is brought to the emergency department by Home health aide. Patient apparently passed out after a episode of vomiting.No chest pain.Recovered consciousness slowly.No fever or chills.Was Lethargic initially in ER but came back to baseline in couple of Hours. CT scan of the brain was unremarkable, carotid Doppler showed less than 50% stenosis. Echocardiogram was done. Result was pending. Cardiology consult was obtained. Nuclear scan test was canceled by the internal grinding machine operator as patient had an normal one recently. Patient is back to baseline dementia. Discussed with the patient's daughter who stated the patient had an DVT of the left arm in July 2018. Was placed on Eliquis. Had a major intracranial hemorrhage. Admitted to [facility]. Eliquis discontinued. Patient placed on aspirin 81 mg daily thereafter. She is being discharged today to follow up with primary care physician. She will be placed back on aspirin 81 mg. Disposition: [id number]/[place]-06 HOME UNDER [facility] Time spent for discharge: 38 mins - Discharge Diagnoses (1) Blood CO2 decreased Status: Acute (2) Syncope and collapse Status: Acute (3) HTN (hypertension) Status: Chronic Qualifiers: Hypertension type: essential hypertension Qualified Code(s): I10 - E ssential (primary) hypertension (4) Acute DVT (deep venous thrombosis) Status: Acute Qualifiers: DVT location: upper extremity Affected thrombotic vein of extremity: unspecified vein of extremity Laterality: left Qualified Code(s): I82.622 - Acute embolism and thrombosis of deep veins of left upper extremity (5) Deep vein thrombosis (DVT) of brachial vein of left upper extremity Status: Acute Qualifiers: Chronicity: acute Qualified Code(s): I82.622 - Acute embolism and thrombosis of deep veins of left upper extremity Core Measure Documentation - Palliative Care Palliative Care/ Comfort Measures: Not Applicable - Core Measures Any of the following diagnoses?: none Exam - Constitutional Vitals: Temp Pulse Resp BP Pulse Ox 98.0 F 66 20 144/93 99 12/05/18 07:30 12/05/18 11:03 12/05/18 09:11 12/05/18 11:03 12/05/18 09:11 General appearance: Present: no acute distress, other (confused) - EENT Eyes: Present: PERRL ENT: hearing intact, clear oral mucosa - Neck Neck: Present: supple, normal ROM - Respiratory Respiratory effort: normal Respiratory: bilateral: CTA - Cardiovascular Heart Sounds: Present: S1 & S2. Absent: rub, click - Extremities Extremities: pulses symmetrical, No edema Peripheral Pulses: within normal limits - Abdominal General gastrointestinal: Present: soft, non-tender, non-distended, normal bowel sounds - Integumentary Integumentary: Present: clear, warm, dry - Musculoskeletal Musculoskeletal: gait normal, strength equal bilaterally - Psychiatric Psychiatric: appropriate mood/affect, intact judgment & insight - Neurologic Neurologic: CNII-XII intact, moves all extremities Plan Activity: up only with assistance, fall precautions Weight Bearing Status: Weight Bear as Tolerated Diet: regular Follow up with: SANJIV MESSER MD [Primary Care Provider] - 14 Days YAMILE FRAUSTO MD [Staff Physician] - 7 Days
[2018-12-05] MEDS: D5NS 1,000 ML IV SCH (11:36)
[2018-12-06 11:36] VITALS: BP 124/69
== END 2018-12-05 14:00 | disposition home health service (06) | DRG 312 ==
LOC: ED 12:08 → 2B-ACE 17:36
PROVIDERS: ADMIT Internal Medicine; ATTEND Family Medicine
DX: R55 Syncope and collapse (principal); I82.A12 Acute embolism and thrombosis of left axillary vein; E44.1 Mild protein-calorie malnutrition; I69.354 Hemiplegia and hemiparesis following cerebral infarction affecting left non-dominant side; I82.622 Acute embolism and thrombosis of deep veins of left upper extremity; I11.0 Hypertensive heart disease with heart failure; I50.9 Heart failure, unspecified; R79.81 Abnormal blood-gas level; F31.9 Bipolar disorder, unspecified; G30.9 Alzheimer's disease, unspecified; F02.80 Dementia in other diseases classified elsewhere, unspecified severity, without behavioral disturbance, psychotic disturbance, mood disturbance, and anxiety; Z79.01 Long term (current) use of anticoagulants; Z79.899 Other long term (current) drug therapy; Z79.82 Long term (current) use of aspirin; Z86.711 Personal history of pulmonary embolism; Z68.32 Body mass index [BMI] 32.0-32.9, adult; Z88.0 Allergy status to penicillin
CPT/HCPCS: 36415; 70450; 71045; 80048; 80053; 80076; 82140; 83735; 83880; 84484; 85007; 85025; 85610; 85730; 87040; 93005; 93010; 93880; G0378; A9270-GY; J7042

== ENCOUNTER 2019-08-24 20:44 | Emergency (ER) | payer MEDICARE ==
--- NOTE | 2019-08-24 22:32 | Emergency Department Report ---
ED Altered Mental Status HPI - General Chief Complaint: Altered Mental Status Stated Complaint: NAUSEA AND VOMITING, ALTERED MENTAL STATUS Time Seen by Provider: 08/24/19 22:08 Source: patient, family, EMS, old records reviewed Mode of arrival: Stretcher Limitations: Altered Mental Status - History of Present Illness Initial Comments: 79 year old female with a past medical history of dementia, CVA with residual left arm weakness, CHF, and hypertension presents to the hospital with complaints of transient alteration in mental status. While a wheelchair patient had episode of her legs stiffening while fully extended and her eyes deviated to the right. Episode lasted 2-3 minutes. Patient has several episode of vomiting immediately afterwards followed by some confusion. Patient is not currently her baseline mental status. Accu-Chek 157 as per EMS. Daughter and 25 a habitat conservation planner at the bedside. States she had a similar episode she presented to here December. Previous medical record review. In December patient was admitted and had a syncopal workup with no mention of possible seizure or seizure workup. PMD: Dr Patiño - Related Data Home Medications Medication Instructions Recorded Confirmed Last Taken Bisacodyl [Dulcolax suppos] 10 mg RI QHS PRN 08/19/18 08/24/19 Unknown AtorvaSTATin [Lipitor] 10 mg PO QHS 08/24/19 08/24/19 Unknown Previous Rx's Medication Instructions Recorded Last Taken Type Aspirin EC [Halfprin EC] 81 mg PO QAM #30 tablet 12/05/18 Unknown Rx Bisacodyl [Dulcolax suppos] 10 mg RI QHS PRN #30 supp.rect 12/05/18 Unknown Rx Carvedilol [Coreg] 6.25 mg PO BID #60 tablet 12/05/18 Unknown Rx Lisinopril [Zestril TAB] 5 mg PO QPM #30 tablet 12/05/18 Unknown Rx Mirtazapine [Remeron 15mg TAB] 15 mg PO QPM #30 tablet 12/05/18 Unknown Rx QUEtiapine [SEROquel] 25 mg PO HS #30 tablet 12/05/18 Unknown Rx levETIRAcetam [Keppra TAB] 500 mg PO BID #60 tablet 08/25/19 Unknown Rx Allergies Allergy/AdvReac Type Severity Reaction Status Date / Time Penicillins Allergy Mild Rash Verified 07/07/18 09:42 ED Review of Systems ROS: Stated complaint: NAUSEA AND VOMITING, ALTERED MENTAL STATUS Other details as noted in HPI Comment: All other systems reviewed and negative ED Past Medical Hx - Past Medical History Previous Medical History?: Yes Hx Hypertension: Yes Hx Congestive Heart Failure: Yes (dilated cardiomyopathy) Hx Diabetes: No Hx Deep Vein Thrombosis: Yes (left arm jul 2018) Hx Pulmonary Embolism: Yes Hx of Cancer: Yes (breast cancer) Hx Psychiatric Treatment: Yes (DEMENTIA) Hx COPD: No Hx Dementia: Yes Additional medical history: 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 for dvt - Surgical History Past Surgical History?: Yes Hx Pacemaker: No Hx Internal Defibrillator: No - Social History Smoking Status: Never Smoker Substance Use Type: None - Medications Home Medications: Home Medications Medication Instructions Recorded Confirmed Last Taken Type Bisacodyl [Dulcolax suppos] 10 mg RI QHS PRN 08/19/18 08/24/19 Unknown History Aspirin EC [Halfprin EC] 81 mg PO QAM #30 tablet 12/05/18 08/24/19 Unknown Rx Bisacodyl [Dulcolax suppos] 10 mg RI QHS PRN #30 supp.rect 12/05/18 08/24/19 Unknown Rx Carvedilol [Coreg] 6.25 mg PO BID #60 tablet 12/05/18 08/24/19 Unknown Rx Lisinopril [Zestril TAB] 5 mg PO QPM #30 tablet 12/05/18 08/24/19 Unknown Rx Mirtazapine [Remeron 15mg TAB] 15 mg PO QPM #30 tablet 12/05/18 08/24/19 Unknown Rx QUEtiapine [SEROquel] 25 mg PO HS #30 tablet 12/05/18 08/24/19 Unknown Rx AtorvaSTATin [Lipitor] 10 mg PO QHS 08/24/19 08/24/19 Unknown History levETIRAcetam [Keppra TAB] 500 mg PO BID #60 tablet 08/25/19 Unknown Rx ED Physical Exam - General Limitations: Altered Mental Status - Other Other exam information: General: No acute distress Head: Atraumatic Eyes: normal appearance, pupils equal and reactive to light extraocular move ments intact ENT: Moist mucous membranes Neck: Normal appearance Chest: Clear to auscultation bilaterally CV: Regular rate and rhythm Abdomen: Soft, normal bowel sounds, nontender, nondistended, no rebound or guarding Back: Normal inspection Extremity: Normal inspection infection, full range of motion Neuro: Patient does not reliably follow all commands. Alert oriented to self only no facial droop, speech clear, sensation grossly intact bilaterally, left arm with significant weakness is chronic. Equal foot dorsiflexion Psych: Appropriate behavior Skin: No rash ED Course Vital Signs 08/24/19 08/24/19 08/24/19 21:03 21:05 21:07 Temperature 98.1 F Pulse Rate 74 79 Respiratory 16 19 Rate Blood Pressure 130/73 Blood Pressure [Right] O2 Sat by Pulse 99 97 Oximetry 08/24/19 08/24/19 08/24/19 21:11 21:15 21:21 Temperature Pulse Rate 72 71 71 Respiratory 19 21 19 Rate Blood Pressure 130/73 130/73 130/73 Blood Pressure [Right] O2 Sat by Pulse 97 96 96 Oximetry 08/24/19 08/24/19 08/24/19 21:25 21:31 21:35 Temperature Pulse Rate 73 77 73 Respiratory 20 18 18 Rate Blood Pressure 130/73 130/73 120/75 Blood Pressure [Right] O2 Sat by Pulse 96 100 97 Oximetry 08/24/19 08/24/19 08/24/19 21:39 21:41 21:45 Temperature Pulse Rate 71 72 70 Respiratory 19 19 18 Rate Blood Pressure 120/75 120/75 120/75 Blood Pressure [Right] O2 Sat by Pulse 96 96 97 Oximetry 08/24/19 08/24/19 08/24/19 21:51 21:55 22:00 Temperature Pulse Rate 72 68 71 Respiratory 17 18 20 Rate Blood Pressure 120/75 130/73 120/74 Blood Pressure [Right] O2 Sat by Pulse 98 97 97 Oximetry 08/24/19 08/24/19 08/24/19 22:05 22:11 22:15 Temperature Pulse Rate 80 73 74 Respiratory 9 L 18 18 Rate Blood Pressure 120/74 120/74 120/74 Blood Pressure [Right] O2 Sat by Pulse 96 98 96 Oximetry 08/24/19 08/24/19 08/24/19 22:21 22:25 22:30 Temperature Pulse Rate 70 77 80 Respiratory 16 16 14 Rate Blood Pressure 120/74 120/74 124/72 Blood Pressure [Right] O2 Sat by Pulse 96 96 95 Oximetry 08/24/19 08/24/1919 22:35 22:41 22:45 Temperature Pulse Rate 77 72 71 Respiratory 17 17 17 Rate Blood Pressure 124/72 124/72 124/72 Blood Pressure [Right] O2 Sat by Pulse 98 97 97 Oximetry 08/24/19 08/24/19 08/24/19 22:51 22:55 23:00 Temperature Pulse Rate 79 79 79 Respiratory 19 18 18 Rate Blood Pressure 124/72 124/72 120/83 Blood Pressure [Right] O2 Sat by Pulse 99 97 95 Oximetry 08/24/19 08/24/19 08/24/19 23:05 23:11 23:15 Temperature Pulse Rate 83 71 74 Respiratory 16 18 20 Rate Blood Pressure 120/83 120/83 120/83 Blood Pressure [Right] O2 Sat by Pulse 98 97 97 Oximetry 08/24/19 08/24/19 08/24/19 23:21 23:25 23:30 Temperature Pulse Rate 77 74 68 Respiratory 17 17 12 Rate Blood Pressure 120/83 120/83 116/74 Blood Pressure [Right] O2 Sat by Pulse 97 96 96 Oximetry 08/24/19 08/24/19 08/24/19 23:35 23:41 23:45 Temperature Pulse Rate 71 70 70 Respiratory 18 17 14 Rate Blood Pressure 116/74 116/74 116/74 Blood Pressure [Right] O2 Sat by Pulse 98 99 97 Oximetry 08/24/19 08/24/19 08/25/19 23:51 23:55 00:00 Temperature Pulse Rate 74 73 70 Respiratory 18 17 16 Rate Blood Pressure 116/74 116/74 110/71 Blood Pressure [Right] O2 Sat by Pulse 95 95 97 Oximetry 08/25/19 08/25/19 08/25/19 00:05 00:10 01:00 Temperature Pulse Rate 70 67 84 Respiratory 16 16 18 Rate Blood Pressure 110/71 110/71 Blood Pressure 130/97 [Right] O2 Sat by Pulse 97 97 100 Oximetry 08/25/19 08/25/19 08/25/19 02:00 04:00 05:45 Temperature Pulse Rate 81 79 89 Respiratory 18 18 18 Rate Blood Pressure Blood Pressure 152/84 141/89 136/80 [Right] O2 Sat by Pulse 100 100 99 Oximetry - Reevaluation(s) Reevaluation #1: 08/25/19 02:19 daughter refuses pt admission at this time. I informed today that is likely her mother had a seizure however, that things Look like a Seizure Consists of a V. tach or a Life-Threatening Arrhythmias. Patient Is Agreeable to Treatment for Seizures and Outpatient Follow-Up but Does Not Want Her Mother to Be Admitted at This Time. Patient Be Loaded with Keppra 1 G po and Discharged on Keppra 500 Mg Twice a Day and Encouraged to Follow up with a Neurologist and PMD Dr. Patiño - Consultations Consultation #2: 08/25/19 02:05 Case discussed with hospitalist Dr. Owen for admission - Lab Data Result diagrams: 08/24/19 22:49 08/24/19 22:49 Lab Results 08/24/19 08/24/19 08/24/19 Range/Units 22:49 22:49 22:49 WBC 9.0 (4.5-11.0) K/mm3 RBC 4.06 (3.65-5.03) M/mm3 Hgb 13.9 (10.1-14.3) gm/dl Hct 42.0 (30.3-42.9) % MCV 103 H (79-97) fl MCH 34 H (28-32) pg MCHC 33 (30-34) % RDW 15.4 H (13.2-15.2) % Plt Count 278 (140-440) K/mm3 Lymph % (Auto) 9.7 L (13.4-35.0) % Bledsoe % (Auto) 5.8 (0.0-7.3) % Eos % (Auto) 0.8 (0.0-4.3) % Baso % (Auto) 0.4 (0.0-1.8) % Lymph # 0.9 L (1.2-5.4) K/mm3 Bledsoe # 0.5 (0.0-0.8) K/mm3 Eos # 0.1 (0.0-0.4) K/mm3 Baso # 0.0 (0.0-0.1) K/mm3 Seg Neutrophils % 83.3 H (40.0-70.0) % Seg Neutrophils # 7.5 (1.8-7.7) K/mm3 Sodium 142 (137-145) mmol/L Potassium 4.3 (3.6-5.0) mmol/L Chloride 104.6 (98-107) mmol/L Carbon Dioxide 28 (22-30) mmol/L Anion Gap 14 mmol/L BUN 13 (7-17) mg/dL Creatinine 0.6 L (0.7-1.2) mg/dL Estimated GFR > 60 ml/min BUN/Creatinine Ratio 22 % Glucose 141 H (65-100) mg/dL Calcium 10.5 H (8.4-10.2) mg/dL Magnesium 2.40 H (1.7-2.3) mg/dL - EKG Data -: EKG Interpreted by Me EKG shows normal: sinus rhythm, ST-T waves (inf lat t inv, no stemi) Rate: normal When compared to previous EKG there are: no significant change - Radiology Data Radiology results: report reviewed CT HEAD WITHOUT CONTRAST INDICATION: possible sz, transient ams TECHNIQUE: All CT scans at this location are performed using CT dose reduction for ALARA by means of automated exposure control. COMPARISON: 12/03/2018 NOTE: Significant motion artifact degrades the study FINDINGS: BRAIN: No hemorrhage or mass effect are seen. No evidence of acute infarction is noted. Atrophy and white matter microvascular changes are again noted. Old area of infarction with small dystrophic calcifications is again seen in the right posterior parietal region. ORBITS: Normal as visualized. SOFT TISSUES OF HEAD: Normal. CALVARIUM: Normal. VISUALIZED PARANASAL SINUSES AND MASTOID AIR CELLS: Clear. ADDITIONAL FINDINGS: None. IMPRESSION: No acute intracranial abnormality. - Medical Decision Making Patient remained at baseline during the ED stay. Awaiting for patient to urinate to obtain urine sample. She has refused catheterization. Labs and CT without acute findings. Pt will be admitted to the hospitalist service for further workup and neurologic consultation. Family refused admission. Patient given oral Keppra for possible seizures and discharged on Keppra with neuro and PMD follow-up. - Differential Diagnosis syncope, arrhythmia, seizure Critical Care Time: No Critical care attestation.: If time is entered above; I have spent that time in minutes in the direct care of this critically ill patient, excluding procedure time. ED Disposition Clinical Impression: Altered awareness, transient, Witnessed seizure-like activity, Dementia Disposition: DC-01 TO HOME OR SELFCARE Is pt being admited?: Yes Condition: Stable Instructions: New-Onset Seizure in Adults (ED) Additional Instructions: Take the medication as prescribed. Follow-up with your doctor or doctor/clinic provided. Return if symptoms worsen as indicated by your discharge instructions. Hospitalization for further monitoring and inpatient neurology evaluation has declined by your family. From what is described, it is likely that you had a seizure. You have been treated with an oral dose of seizure medication in the ER and have discharged on seizure medication. You will need further workup and evaluation by a neurologist as well as follow up with your primary care doctor. Please return if symptoms worsen as indicated by your discharge instructions. Prescriptions: levETIRAcetam [Keppra TAB] 500 mg PO BID #60 tablet Referrals: MICKI CRUZ MD [Staff Physician] - 3-5 Days (Neurology ) YAMILE PATIÑO MD [Staff Physician] - 3-5 Days (Primary care doctor ) Time of Disposition: 04:50 (Dr Owen/[facility])
[2019-08-24 23:15] LABS: Basophils % (Auto) 0.4 % (0.0-1.8); Eosinophils # (Auto) 0.1 K/mm3 (0.0-0.4); Eosinophils % (Auto) 0.8 % (0.0-4.3); Hemoglobin 13.9 gm/dl (10.1-14.3); Lymphocytes # (Auto) 0.9 K/mm3 (1.2-5.4); Lymphocytes % (Auto) 9.7 % (13.4-35.0); Mean Corpuscular HGB Conc 33 % (30-34); Mean Corpuscular Volume 103 fl (79-97); Monocytes # (Auto) 0.5 K/mm3 (0.0-0.8); Monocytes % (Auto) 5.8 % (0.0-7.3); Platelet Count 278 K/mm3 (140-440); Red Blood Count 4.06 M/mm3 (3.65-5.03); Red Cell Distribution Width 15.4 % (13.2-15.2)
[2019-08-24 23:29] LABS: BUN/Creatinine Ratio 22; Blood Urea Nitrogen 13 mg/dL (7-17); Calcium 10.5 mg/dL (8.4-10.2); Hemolysis Index 15
--- NOTE | 2019-08-25 01:31 | Cat Scan Report ---
CT HEAD WITHOUT CONTRAST INDICATION: possible sz, transient ams TECHNIQUE: All CT scans at this location are performed using CT dose reduction for ALARA by means of automated exposure control. COMPARISON: 12/03/2018 NOTE: Significant motion artifact degrades the study FINDINGS: BRAIN: No hemorrhage or mass effect are seen. No evidence of acute infarction is noted. Atrophy and w anand matter microvascular changes are again noted. Old area of infarction with small dystrophic calci fications is again seen in the right posterior parietal region. ORBITS: Normal as visualized. SOFT TISSUES OF HEAD: Normal. CALVARIUM: Normal. VISUALIZED PARANASAL SINUSES AND MASTOID AIR CELLS: Clear. ADDITIONAL FINDINGS: None. IMPRESSION: No acute intracranial abnormality. Signer Name: Sathish Chowdary MD Signed: 08/25/2019 1:27 AM Workstation Name: [id number]
[2019-08-25] MEDS ORDERED: KEPPRA 1,000 MG/NS 0.75% 100ML 1,000 MG/100 ML BAG IV ONE (02:19)
[2019-08-25] MEDS ORDERED: KEPPRA ONE (03:13)
[2019-08-25] MEDS ORDERED: KEPPRA PO ONE (03:18)
[2019-08-25 05:46] VITALS: BP 136/80
== END 2019-08-25 07:08 | disposition home or self-care (01) ==
LOC: ED 20:44
DX: R40.4 Transient alteration of awareness (principal); R56.9 Unspecified convulsions; F03.90 Unspecified dementia, unspecified severity, without behavioral disturbance, psychotic disturbance, mood disturbance, and anxiety; I11.0 Hypertensive heart disease with heart failure; I50.9 Heart failure, unspecified; Z85.3 Personal history of malignant neoplasm of breast; Z86.718 Personal history of other venous thrombosis and embolism; Z79.01 Long term (current) use of anticoagulants; Z86.711 Personal history of pulmonary embolism; Z79.899 Other long term (current) drug therapy; Z88.0 Allergy status to penicillin
CPT/HCPCS: 36415; 70450; 80048; 83735; 85025; 93005; 93010; 99285; J1953

== ENCOUNTER 2021-05-26 20:42 | Inpatient (IN) | payer MEDICARE ==
--- NOTE | 2021-05-26 21:09 | Emergency Department Report ---
Blank Doc - Documentation Documentation: [facility] Consult Note # Demographics Consult Type: Acute Stroke Level 1 (0-4.5 hrs) Patient Location: Emergency Room First Name: Tamera Last Name: Nir Date of : 1940 Age: 81 Gender: Female Time of Initial Page (Eastern Time): 05/26/2021, 20:45 Time of Return Call ( Time): 05/26/2021, 20:48 # HPI History: 81 yo woman hx prior CVA, dementia, last well at noon, and found slumped over unresponsive. Prior left sided weakness, hypotensive on arrival. # Scores Time of exam and NIHSS ( Time): 05/26/2021, 21:04 Level of Consciousness 1a: [0] = Alert; keenly responsive LOC Questions 1b: [2] = Answers neither correctly LOC Commands 1c: [2] = Performs neither correctly Best Gaze 2: [0] = Normal Visual 3: [0] = No visual loss Facial Palsy 4: [0] = Normal symmetrical movements Motor Arm Left 5a: [0] = No drift Motor Arm Right 5b: [0] = No drift Motor Leg Left 6a: [0] = No drift Motor Leg Right 6b: [0] = No drift Limb Ataxia 7: [0] = Absent Sensory 8: [0] = Normal Best Language 9: [0] = No aphasia Dysarthria 10: [0] = Normal Extinction and Inattention 11: [0] = No abnormality NIHSS Total: 4 # Data Head CT: no bleed old right mca stroke, atrophy. # Assessment Impression: altered mental status hypotension on arrival hx of stroke and dementia new stroke is low likelihood. etiology of symptoms likely from other underlying medical/infectious process. # Plan Thrombolytic/Intervention: NOT IV Thrombolysis or IA Intervention candidate Thrombolytic Exclusion: > 4.5 hours Intraarterial Exclusion: no large vessel occlusion (LVO) Target Blood Pressure: SBP < 220 Labs: CBC comprehensive metabolic panel lipid panel TSH ua Medication: aspirin 325 mg daily DVT Prophylaxis: heparin 5000 units subcutaneously q 12 hours Other: consult on-site neurology service for full work-up and evaluation recommendations If patient has any neurological deterioration please call me back immediately I have discussed my recommendations with the referring provider Additional Recommendations: Admit for stroke work up Disposition: admit # Logistics Telemedicine: Interactive 2 way audio and visual telecommunication technology was utilized during this visit
--- NOTE | 2021-05-26 21:27 | Cat Scan Report ---
CT HEAD WITHOUT CONTRAST INDICATION: CODE STROKE PROTOCOL!!! Altered mental status, prior history of CVA TECHNIQUE: All CT scans at this location are performed using CT dose reduction for ALARA by means of automated exposure control. COMPARISON: 08/25/2019 FINDINGS: BRAIN: No hemorrhage or mass effect are seen. No evidence of acute infarction is noted. Prominent whi te matter microvascular changes are noted. Old right parietal infarction is noted. Atrophic changes a re noted. Small left basal ganglier lacunar infarction is again seen. ORBITS: Normal as visualized. SOFT TISSUES OF HEAD: Normal. CALVARIUM: Normal. VISUALIZED PARANASAL SINUSES AND MASTOID AIR CELLS: Clear. ADDITIONAL FINDINGS: None. IMPRESSION: No acute intracranial abnormality. CODE STROKE: Time of Communication (ROLL OFF DRIVER/CDT): 2020 Licensed Practitioner Receiving Report: Dr. Arellano Signer Name: Sathish Chowdary MD Signed: 05/26/2021 9:23 PM Workstation Name: [id number]
[2021-05-26 21:38] LABS: Basophils # (Auto) 0.1 K/mm3 (0.0-0.1); Basophils % (Auto) 0.9 % (0.0-1.8); Eosinophils # (Auto) 0.1 K/mm3 (0.0-0.4); Eosinophils % (Auto) 1.1 % (0.0-4.3); Hemoglobin 14.1 gm/dl (10.1-14.3); Lymphocytes # (Auto) 1.4 K/mm3 (1.2-5.4); Lymphocytes % (Auto) 24.3 % (13.4-35.0); Mean Corpuscular HGB Conc 32 % (30-34); Mean Corpuscular Volume 111 fl (79-97); Monocytes # (Auto) 0.7 K/mm3 (0.0-0.8); Monocytes % (Auto) 11.9 % (0.0-7.3); Red Blood Count 3.96 M/mm3 (3.65-5.03); Red Cell Distribution Width 17.9 % (13.2-15.2)
[2021-05-26 21:39] LABS: Platelet Count 203 K/mm3 (140-440)
[2021-05-26] MEDS ORDERED: SODIUM CHLORIDE 0.9% 1000 ML 1,000 ML IV ONE (21:48)
[2021-05-26 21:54] LABS: INR 0.97 (0.87-1.13)
[2021-05-26 21:56] LABS: Alanine Aminotransferase 14 units/L (7-56); Albumin 3.3 g/dL (3.9-5); Blood Urea Nitrogen 14 mg/dL (7-17); Calcium 10.7 mg/dL (8.4-10.2); Hemolysis Index 29
[2021-05-26 21:57] LABS: BUN/Creatinine Ratio 28
--- NOTE | 2021-05-26 22:02 | Emergency Department Report ---
HPI - General Chief Complaint: Altered Mental Status Time Seen by Provider: 05/26/21 20:55 - HPI HPI: Room 2 The patient is an 81-year-old female present with a chief complaint of altered mental status. The patient originally was brought in by EMS under a code stroke. Per EMS the patient's last known well time was 20: 00. Approximately 10 minutes later the patient was found by caregiver to be slumped over in her wheelchair unresponsive. Patient has a history of previous CVA with left-sided weakness. No other symptoms were reported by EMS. The patient responds slowly to tactile and verbal stimuli. When asked if anything is bothering her the patient begins to answer but never completes her thought. 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 for dvt - Family History Family history: no significant - Social History Smoking Status: Unknown if ever smoked Substance Use Type: None - Medications Home Medications: Home Medications Medication Instructions Recorded Confirmed Last Taken Type bisacodyL [Dulcolax suppos] 10 mg [place] QHS PRN 08/19/18 08/24/19 Unknown History Aspirin EC [Halfprin EC] 81 mg PO QAM #30 tablet 12/05/18 08/24/19 Unknown Rx Mirtazapine [Remeron 15mg TAB] 15 mg PO QPM #30 tablet 12/05/18 08/24/19 Unknown Rx QUEtiapine [SEROquel] 25 mg PO HS #30 tablet 12/05/18 08/24/19 Unknown Rx bisacodyL [Dulcolax suppos] 10 mg IL QHS PRN #30 supp.rect 12/05/18 08/24/19 Unknown Rx carvediloL [Coreg] 6.25 mg PO BID #60 tablet 12/05/18 08/24/19 Unknown Rx lisinopriL [Zestril TAB] 5 mg PO QPM #30 tablet 12/05/18 08/24/19 Unknown Rx AtorvaSTATin [Lipitor] 10 mg PO QHS 08/24/19 08/24/19 Unknown History levETIRAcetam [Keppra TAB] 500 mg PO BID #60 tablet 08/25/19 Unknown Rx ED Review of Systems ROS: Stated complaint: NU/EMISIS Other details as noted in HPI Comment: Unobtainable due to pts medical conditions Physical Exam - Physical Exam Physical Exam: GENERAL: The patient is well-developed well-nourished female lying on stretcher slow to respond but not appearing to be in acute distress. [] HEENT: Normocephalic. Atraumatic. Extraocular motions are intact. Patient has moist mucous membranes. NECK: Supple. Trachea midline CHEST/LUNGS: Clear to auscultation. There is no respiratory distress noted. HEART/CARDIOVASCULAR: Regular. There is no tachycardia. There is no gallop rub or murmur. ABDOMEN: Abdomen is soft, nontender. Patient has normal bowel sounds. There is no abdominal distention. SKIN: There is no rash. There is no edema. There is no diaphoresis. NEURO: The patient opens her eyes and responds verbally to verbal and tactile stimuli. Patient does not follow commands or answer questions fully. Patient has left-sided weakness from previous CVA MUSCULOSKELETAL: There is no evidence of acute injury. ED Medical Decision Making - Lab Data Result diagrams: 05/26/21 21:31 05/26/21 21:31 - Radiology Data Radiology results: report reviewed (CT head, chest x-ray), image reviewed (CT h ead, chest x-ray) interpreted by me: Chest x-ray-right lower lobe opacity. No pneumothorax. [facility] [address] [place] [address] Cat Scan Report Signed Patient: BRIGIDA MOSQUEDA MR#: [id number] : 1939 Acct:[id number] Age/Sex: 81 / F ADM Date: 05/26/21 Loc: ED Attending Dr: Ordering Physician: BERNARDO LEMUS MD Date of Service: 05/26/21 Procedure(s): CT head/brain wo con Accession Number(s): [id number] cc: BERNARDO LEMUS MD CT HEAD WITHOUT CONTRAST INDICATION: CODE STROKE PROTOCOL!!! Altered mental status, prior history of CVA TECHNIQUE: All CT scans at this location are performed using CT dose reduction for ALARA by means of automated exposure control. COMPARISON: 08/25/2019 FINDINGS: BRAIN: No hemorrhage or mass effect are seen. No evidence of acute infarction is noted. Prominent white matter microvascular changes are noted. Old right parietal infarction is noted. Atrophic changes are noted. Small left basal ganglier lacunar infarction is again seen. ORBITS: Normal as visualized. SOFT TISSUES OF HEAD: Normal. CALVARIUM: Normal. VISUALIZED PARANASAL SINUSES AND MASTOID AIR CELLS: Clear. ADDITIONAL FINDINGS: None. IMPRESSION: No acute intracranial abnormality. CODE STROKE: Time of Communication (CERTIFICATION AND SELECTION SPECIALIST/CDT): 2020 Licensed Practitioner Receiving Report: Dr. Lemus Signer Name: Sathish Chowdary MD S igned: 05/26/2021 9:23 PM Workstation Name: [id number] Transcribed By: GJ Dictated By: Sathish Chowdary MD Electronically Authenticated By: Sathish Chowdary MD Signed Date/Time: 05/26/212122 DD/ 16 TD/TT: Print Cancel [facility] [address] [place] [address] XRay Report Signed Patient: BRIGIDA MOSQUEDA MR#: [id number] : 1940 Acct:[id number] Age/Sex: 81 / F ADM Date: 05/26/21 Loc: ED Att ending Dr: Ordering Physician: BERNARDO LEMUS MD Date of Service: 05/26/21 Procedure(s): XR chest 1V ap Accession Number(s): [id number] cc: BERNARDO LEMUS MD Fluoro Time In Minutes: CHEST 1 VIEW 2206 INDICATION / CLINICAL INFORMATION: Hypotension, altered mental status COMPARISON: 12/03/2018 FINDINGS: SUPPORT DEVICES: None HEART / MEDIASTINUM: Heart size appears within normal limits. Aortic ectasia and tortuosity are again seen. LUNGS / PLEURA: Very poor degree of inspiration is noted. Bibasilar atelectatic changes are noted. Mild bibasilar pneumonitis is not included. No pneumothorax. ADDITIONAL FINDINGS: No significant additional findings. Signer Name: Sathish Chowdary MD Signed: 05/26/2021 10:38 PM Workstation Name: [id number] Transcribed By: GJ Dictated By: Sathish Chowdary MD Electronically Authenticated By: Sathish Chowdary MD Signed Date/Time: 05/26/212237 DD/ 36 TD/TT: Print Cancel - Differential Diagnosis AMS, intracranial hemorrhage, sepsis, Critical care attestation.: If time is entered above; I have spent that time in minutes in the direct care of this critically ill patient, excluding procedure time. ED Disposition Clinical Impression: Altered mental status, Hyperammonemia, Pneumonia Disposition: OP ADMIT IP TO THIS HOSP Is pt being admited?: Yes Does the pt Need Aspirin: Yes Condition: Fair Instructions: Bacterial Pneumonia (ED) Time of Disposition: 23:05 (Hospitalist paged (Dr Kendall))
[2021-05-26 22:07] LABS: Free T4 (Free Thyroxine) 1.36 ng/dL (0.76-1.46)
--- NOTE | 2021-05-26 22:43 | XRay Report ---
CHEST 1 VIEW 2207 INDICATION / CLINICAL INFORMATION: Hypotension, altered mental status COMPARISON: 12/03/2018 FINDINGS: SUPPORT DEVICES: None HEART / MEDIASTINUM: Heart size appears within normal limits. Aortic ectasia and tortuosity are again seen. LUNGS / PLEURA: Very poor degree of inspiration is noted. Bibasilar atelectatic changes are noted. Mi ld bibasilar pneumonitis is not included. No pneumothorax. ADDITIONAL FINDINGS: No significant additional findings. Signer Name: Sathish Chowdary MD Signed: 05/26/2021 10:38 PM Workstation Name: [email or web address][id number]
[2021-05-26] MEDS ORDERED: ASPIRIN 325 MG TAB PO ONE (23:05)
--- NOTE | 2021-05-26 23:29 | History and Physical Report ---
History of Present Illness Date of examination: 05/26/21 Date of admission: 05/26/21 Chief complaint: AMS History of present illness: The patient is an 81-year-old female present with a chief complaint of altered mental status. The patient originally was brought in by EMS under a code stroke. Per EMS the patient's last known well time was 20: 00. Approximately 1 0 minutes later the patient was found by caregiver to be slumped over in her wheelchair unresponsive. Patient has a history of previous CVA with left-sided weakness. No other symptoms were reported by EMS. The patient responds slowly to tactile and verbal stimuli. When asked if anything is bothering her the patient begins to answer but never completes her thought. ED work-up showed WBC 5.6, hemoglobin 14.1 platelet 203, sodium 136, potassium 4.4, creatinine 0.5, serum glucose 103, lactic acid 2.90, calcium 10.7, magnesium 1.9, thyroid stimulating hormone 9.250, Free T4 1.3, and serum albumin 3.3. Patient seen in ED at bedside, patient is nonverbal unable to get information directly patient. Patient information letter from medical record and ED report and note. Patient not in acute distress at the time of assessment. I reviewed patient lab results and vital signs. Patient has el evated lactic acid and TSH. The patient history patient has been history of CVA with left-sided weakness. Patient also have a history of dementia right breast CA with partial removal and bedbound. Past History Past Medical History: cancer (breast ca), hypertension, stroke, other (dementia, ) Past Surgical History: mastectomy (partial), Other Social history: no significant social history Family history: no significant family history Medications and Allergies Allergies Allergy/AdvReac Type Severity Reaction Status Date / Time Penicillins Allergy Mild Rash Verified 07/07/18 09:42 Home Medications Medication Instructions Recorded Confirmed Last Taken Type bisacodyL [Dulcolax suppos] 10 mg AR QHS PRN 08/19/18 08/24/19 Unknown History Aspirin EC [Halfprin EC] 81 mg PO QAM #30 tablet 12/05/18 08/24/19 Unknown Rx Mirtazapine [Remeron 15mg TAB] 15 mg PO QPM #30 tablet 12/05/18 08/24/19 Unknown Rx QUEtiapine [SEROquel] 25 mg PO HS #30 tablet 12/05/18 08/24/19 Unknown Rx bisacodyL [Dulcolax suppos] 10 mg AR QHS PRN #30 supp.rect 12/05/18 08/24/19 Unknown Rx carvediloL [Coreg] 6.25 mg PO BID #60 tablet 12/05/18 08/24/19 Unknown Rx lisinopriL [Zestril TAB] 5 mg PO QPM #30 tablet 12/05/18 08/24/19 Unknown Rx AtorvaSTATin [Lipitor] 10 mg PO QHS 08/24/19 08/24/19 Unknown History levETIRAcetam [Keppra TAB] 500 mg PO BID #60 tablet 08/25/19 Unknown Rx Active Meds: Active Medications Levofloxacin/Dextrose (Levaquin 750mg/150ml) 750 mg in 150 mls @ 100 mls/hr IV ONCE ONE; Protocol Stop: 05/27/21 00:32 Review of Systems Constitutional: fatigue, weakness Ears, nose, mouth and throat: no epistaxis, no bleeding gums Cardiovascular: high blood pressure Gastrointestinal: no melena Genitourinary Female: mixed incontinence, other (bedbound) Rectal: incontinence, no hemorrhoids Integumentary: no rash, no pruritis Neurological: weakness, parathesias, memory loss Psychiatric: no suicidal ideation Hematologic/Lymphatic: no easy bruising, no easy bleeding, no lymphadenopathy, no lymphedema Allergic/Immunologic: no urticaria, no persistent infections Exam - Constitutional Vitals: Temp Pulse Resp BP Pulse Ox 98.8 F 116/66 100 05/26/21 22:00 05/26/21 22:30 05/26/21 22:30 General appearance: Present: mild distress, well-nourished - EENT Eyes: Present: PERRL ENT: hearing intact, clear oral mucosa - Neck Neck: Present: supple, normal ROM - Respiratory Respiratory effort: normal Respiratory: bilateral: CTA - Cardiovascular Heart Sounds: Present: S1 & S2. Absent: rub, click - Extremities Extremities: pulses symmetrical, No edema Peripheral Pulses: within normal limits - Abdominal General gastrointestinal: Present: soft, non-tender, non-distended, normal bowel sounds Female genitourinary: Present: normal - Integumentary Integumentary: Present: clear, warm, dry - Musculoskeletal Musculoskeletal: gait normal, strength equal bilaterally - Psychiatric Psychiatric: appropriate mood/affect, intact judgment & insight - Neurologic Neurologic: CNII-XII intact, moves all extremities - Allied Health Allied health notes reviewed: nursing HEART Score - HEART Score Troponin: Troponin T 0.016 ng/mL (0.00-0.029) 05/26/21 21:31 Results - Labs CBC & Chem 7: 05/26/21 21:31 05/26/21 21:31 Labs: Abnormal lab results 05/26/21 05/26/21 05/26/21 Range/Units 21:31 21:31 21:31 Hct 44.0 H (30.3-42.9) % MCV 111 H (79-97) fl MCH 36 H (28-32) pg RDW 17.9 H (13.2-15.2) % [place] % (Auto) 11.9 H (0.0-7.3) % APTT 20.0 L (24.2-36.6) Sec. Sodium 136 L (137-145) mmol/L Creatinine 0.5 L (0.6-1.2) mg/dL Glucose 103 H (65-100) mg/dL Lactic Acid (0.7-2.0) mmol/L Calcium 10.7 H (8.4-10.2) mg/dL Ammonia (25-60) umol/L Total Creatine Kinase 300 H (30-135) units/L Albumin 3.3 L (3.9-5) g/dL TSH (0.270-4.200) mlU/mL 05/26/21 05/26/21 05/26/21 Range/Units : 21: 21:31 Hct (30.3-42.9) % MCV (79-97) fl MCH (28-32) pg RDW (13.2-15.2) % [place] % (Auto) (0.0-7.3) % APTT (24.2-36.6) Sec. Sodium (137-145) mmol/L Creatinine (0.6-1.2) mg/dL Glucose (65-100) mg/dL Lactic Acid 2.90 H* (0.7-2.0) mmol/L Calcium (8.4-10.2) mg/dL Ammonia 64.0 H (25-60) umol/L Total Creatine Kinase (30-135) units/L Albumin (3.9-5) g/dL TSH 9.250 H (0.270-4.200) mlU/mL Assessment and Plan - Patient Problems (1) Metabolic encephalopathy Current Visit: Yes Status: Acute Plan to address problem: Altered mental statuscerebral cause CT of the head done no acute finding Patient is nonverbal to verbal stimuli Speech pathologist consulted, PT and OT consult We will start patient on IV fluid for hydration (2) Hyperammonemia Current Visit: Yes Status: Acute Plan to address problem: Elevated ammonia on blood work Given lactulose monitor ammonia level (3) CVA (cerebral vascular accident) Current Visit: No Status: Resolved Plan to address problem: Continue antiplatelet and statin CT of the head is negative for acute finding PT OT consult (4) Dementia Current Visit: No Status: Acute Plan to address problem: Resume home med for dementia (5) DVT prophylaxis Current Visit: Yes Status: Acute Plan to address problem: Subcutaneous Lovenox
[2021-05-26] MEDS ORDERED: MAGNESIUM HYDROXIDE (MOM) ORAL LIQD UDC PO PRN ×2 (23:40)
[2021-05-26] MEDS ORDERED: ALUM-MAG HYDROXIDE-SIMETHICONE 200-200-20MG/5ML ORAL LIQD 30 ML PO PRN (23:40)
[2021-05-26] MEDS ORDERED: MORPHINE 2 MG/1 ML INJ IV PRN (23:40)
[2021-05-26] MEDS ORDERED: ONDANSETRON 4 MG/2 ML INJ IV PRN ×2 (23:40)
[2021-05-26] MEDS ORDERED: ACETAMINOPHEN 325 MG TAB PO PRN ×2 (23:40)
[2021-05-26] MEDS ORDERED: PROMETHAZINE 25 MG RECT SUPP PR PRN (23:40)
[2021-05-26] MEDS ORDERED: METOCLOPRAMIDE 10 MG TAB PO PRN (23:40)
[2021-05-26] MEDS ORDERED: METOCLOPRAMIDE 10 MG/2 ML INJ IV PRN (23:40)
[2021-05-26] MEDS ORDERED: oxyCODONE /ACETAMINOPHEN 5-325MG TAB PO PRN (23:40)
[2021-05-27] MEDS ORDERED: LACTULOSE 20 GM/30 ML ORAL LIQD PO ONE (01:44)
[2021-05-27] MEDS ORDERED: ASPIRIN 81 MG TAB CHEW ONE (02:39)
[2021-05-27 03:34] LABS: Basophils # (Auto) 0.1 K/mm3 (0.0-0.1); Basophils % (Auto) 1.1 % (0.0-1.8); Eosinophils % (Auto) 0.5 % (0.0-4.3); Hematocrit 41.7 % (30.3-42.9); Hemoglobin 13.8 gm/dl (10.1-14.3); Lymphocytes % (Auto) 15.8 % (13.4-35.0); Mean Corpuscular HGB Conc 33 % (30-34); Mean Corpuscular Volume 107 fl (79-97); Monocytes # (Auto) 0.7 K/mm3 (0.0-0.8); Monocytes % (Auto) 10.8 % (0.0-7.3); Red Blood Count 3.89 M/mm3 (3.65-5.03); Red Cell Distribution Width 17.3 % (13.2-15.2)
[2021-05-27 03:35] LABS: Platelet Count 269 K/mm3 (140-440)
[2021-05-27 03:40] LABS: Alanine Aminotransferase 14 units/L (7-56); Albumin 3.4 g/dL (3.9-5); Blood Urea Nitrogen 14 mg/dL (7-17); Calcium 10.5 mg/dL (8.4-10.2); Chol/HDL Ratio 3.97 %; HDL Cholesterol 35 mg/dL (40-59); Hemolysis Index 37; LDL Cholesterol,Direct 107 mg/dL (50-130)
[2021-05-27 04:02] LABS: BUN/Creatinine Ratio 28
[2021-05-27] MEDS: D5W/0.9% NACL 1,000 ML IV SCH ×2 (04:43→23:25)
[2021-05-27] MEDS: ENOXAPARIN 40 MG/0.4 ML INJ SUB-Q SCH (10:56)
[2021-05-27] MEDS: FAMOTIDINE 20 MG/2 ML INJ IV SCH ×2 (10:56→23:30)
[2021-05-27] MEDS: ASPIRIN EC 81 MG TAB PO SCH (10:57)
[2021-05-27] MEDS: levETIRAcetam 500 MG TAB PO SCH ×2 (10:57→23:30)
--- NOTE | 2021-05-27 15:01 | Progress Note ---
Assessment and Plan The patient is an 81-year-old female with history patient has been history of CVA with left-sided weakness, dementia, right breast CA with partial removal and bedbound status present with a chief complaint of altered mental status. The milan lawrence originally was brought in by EMS under a code stroke. ED work-up showed WBC 5.6, hemoglobin 14.1 platelet 203, sodium 136, potassium 4.4, creatinine 0.5, serum glucose 103, lactic acid 2.90, calcium 10.7, magnesium 1.9, thyroid stimulating hormone 9.250, Free T4 1.3, and serum albumin 3.3. Patient has elevated lactic acid and TSH. A/P -- Metabolic encephalopathy CT of the head done no acute finding Patient is nonverbal to verbal stimuli -only speaks 1 or 2 words Speech pathologist consulted, PT and OT consulted Continue IV fluid for hydration --History of old CVA with left-sided weakness and dysphagia Continue antiplatelet and statin CT of the head is negative for acute finding PT OT consult -- Hyperammonemia Elevated ammonia on blood work Given lactulose monitor ammonia level --Lactic acidosis, likely due to dehydration improved --History of right breast cancer Continue supportive care, outpatient follow-up -- Dementia Resume home med for dementia, frequent orientation and supportive care -- DVT prophylaxis Subcutaneous Lovenox Daily clinical course: 05/27/21: MRI brain pending, continue IV fluid, follow BMP. Follow ammonia level. Wait for PT and speech eval. Will follow speech recommendation to initiate diet. Patient appears chronically debilitated and bedbound state at home. Will discuss with family for hospice. Continue supportive care for now and follow MRI result. Subjective Date of service: 05/27/21 Interval history: Patient seen and examined. Medical records and medication list reviewed. No acute event overnight noted by the RN. Patient speaks only couple of words and complains of generalized body ache Brain MRI pending Discussed plan of care at bedside with patient's RN. Objective - Exam Narrative Exam: General appearance: Present: mild distress and lethargic elderly - [place] female - EENT Eyes: Present: PERRL ENT: hearing intact, dry oral mucosa - Neck Neck: Present: supple, normal ROM - Respiratory Respiratory effort: normal Respiratory: bilateral: CTA - Cardiovascular Heart Sounds: Present: S1 & S2. Absent: rub, click - Extremities Extremities: pulses symmetrical, No edema Peripheral Pulses: within normal limits - Abdominal General gastrointestinal: Present: soft, non-tender, non-distended, normal bowel sounds Female genitourinary: Present: normal - Integumentary Integumentary: Present: clear, warm, dry - Musculoskeletal Musculoskeletal: Generalized weakness - Psychiatric Psychiatric: Unable to assess as patient hardly speaks anything - Neurologic Neurologic: CNII-XII intact, moves all extremities - Constitutional Vitals: Vital Signs - 12hr 05/27/21 05/27/21 05/27/21 03:00 03:10 03:20 Temperature Pulse Rate Respiratory 19 18 17 Rate Blood Pressure 136/76 128/73 128/73 Blood Pressure [Left] O2 Sat by Pulse 86 97 96 Oximetry 05/27/21 05/27/21 05/27/21 03:30 03:40 03:46 Temperature Pulse Rate Respiratory 15 15 15 Rate Blood Pressure 128/84 133/99 133/99 Blood Pressure [Left] O2 Sat by Pulse 98 97 96 Oximetry 05/27/21 05/27/21 05/27/21 04:00 04:33 04:40 Temperature Pulse Rate 56 L 72 Respiratory 14 16 Rate Blood Pressure 126/87 Blood Pressure 138/72 [Left] O2 Sat by Pulse 90 97 Oximetry 05/27/21 05/27/21 12:14 13:49 Temperature 98.3 F Pulse Rate 197 H Respiratory 20 18 Rate Blood Pressure 137/91 Blood Pressure [Left] O2 Sat by Pulse 97 90 Oximetry - Labs CBC & Chem 7: 05/27/21 02:54 05/29/21 05:48 Labs: Abnormal lab results 05/26/21 05/26/21 05/26/21 Range/Units 21:31 21:31 21:31 Hct 44.0 H (30.3-42.9) % MCV 111 H (79-97) fl MCH 36 H (28-32) pg RDW 17.9 H (13.2-15.2) % [place] % (Auto) 11.9 H (0.0-7.3) % Lymph # (Auto) (1.2-5.4) K/mm3 Seg Neutrophils % (40.0-70.0) % APTT 20.0 L (24.2-36.6) Sec. Sodium 136 L (137-145) mmol/L Creatinine 0.5 L (0.6-1.2) mg/dL Glucose 103 H (65-100) mg/dL Lactic Acid (0.7-2.0) mmol/L Calcium 10.7 H (8.4-10.2) mg/dL Ammonia (25-60) umol/L Total Creatine Kinase 300 H (30-135) units/L Total Protein (6.3-8.2) g/dL Albumin 3.3 L (3.9-5) g/dL HDL Cholesterol (40-59) mg/dL TSH (0.270-4.200) mlU/mL 05/26/21 05/26/21 05/26/21 Range/Units 21:31 21:31 21:31 Hct (30.3-42.9) % MCV (79-97) fl MCH (28-32) pg RDW (13.2-15.2) % [place] % (Auto) (0.0-7.3) % Lymph # (Auto) (1.2-5.4) K/mm3 Seg Neutrophils % (40.0-70.0) % APTT (24.2-36.6) Sec. Sodium (137-145) mmol/L Creatinine (0.6-1.2) mg/dL Glucose (65-100) mg/dL Lactic Acid 2.90 H* (0.7-2.0) mmol/L Calcium (8.4-10.2) mg/dL Ammonia 64.0 H (25-60) umol/L Total Creatine Kinase (30-135) units/L Total Protein (6.3-8.2) g/dL Albumin (3.9-5) g/dL HDL Cholesterol (40-59) mg/dL TSH 9.250 H (0.270-4.200) mlU/mL 05/27/21 05/27/21 Range/Units 02:54 02:54 Hct (30.3-42.9) % MCV 107 H (79-97) fl MCH 35 H (28-32) pg RDW 17.3 H (13.2-15.2) % [place] % (Auto) 10.8 H (0.0-7.3) % Lymph # (Auto) 1.0 L (1.2-5.4) K/mm3 Seg Neutrophils % 71.8 H (40.0-70.0) % APTT (24.2-36.6) Sec. Sodium (137-145) mmol/L Creatinine 0.5 L (0.6-1.2) mg/dL Glucose 103 H (65-100) mg/dL Lactic Acid (0.7-2.0) mmol/L Calcium 10.5 H (8.4-10.2) mg/dL Ammonia (25-60) umol/L Total Creatine Kinase (30-135) units/L Total Protein 6.1 L (6.3-8.2) g/dL Albumin 3.4 L (3.9-5) g/dL HDL Cholesterol 35 L (40-59) mg/dL TSH (0.270-4.200) mlU/mL HEART Score - HEART Score Troponin: Troponin T 0.016 ng/mL (0.00-0.029) 05/26/21 21:31
[2021-05-27] MEDS: MIRTAZAPINE 15 MG TAB PO SCH (23:30)
[2021-05-27] MEDS: QUEtiapine 25 MG TAB PO SCH (23:32)
[2021-05-28] MEDS: D5W/0.9% NACL 1,000 ML IV SCH (10:55)
--- NOTE | 2021-05-28 11:48 | Electrocardiograph Report ---
[facility] Test Date: 2021-05-26 Test Time: 21:39:09 Pat Name: BRIGIDA MOSQUEDA Department: Room: A374 1 Gender: F Youth Manager: JUDY : 1940 Requested By: SONY FARRAR Order Number: [id number] Reading MD: Mei Cisneros Measurements Intervals [place] Rate: 99 P: -79 IA: 173 QRS: -8 QRSD: 84 T: 266 QT: 343 QTc: 440 Interpretive Statements Poor quality ECG with marked baseline artifact Rhythm is probably an atrial fibrillation with well-controlled ventricular rate Nonspecific T abnormalities, lateral leads No previous ECG available for comparison Electronically Signed On 05-28-2021 11:48:03 EDT by Mei Cisneros
--- NOTE | 2021-05-28 12:11 | Magnetic Resonance Report ---
MRI BRAIN WITHOUT CONTRAST INDICATION / CLINICAL INFORMATION: stroke, AMS , WEAKNESS. TECHNIQUE: Multiplanar, multisequence MR images of the brain were obtained. COMPARISON: Head CT 05/26/2020 and MRI brain 07/10/2018 FINDINGS: BRAIN / INTRACRANIAL CONTENTS: Advanced parenchymal volume loss is noted with profound, bilateral tem poral lobe atrophy. Temporal lobe atrophy has progressed since MRI brain 07/10/2018. Are there signs or symptoms of Alzheimer's disease. Extensive confluent periventricular, deep and subcortical white mat ter hyperintensities are noted consistent with advanced microvascular ischemic changes. MR findings w ere present on previous study. There is no mass effect. No evidence of intracranial hemorrhage or ext ra-axial fluid collection is seen. Correlation is observed in the right frontal and parietal lobe sec ondary to right MCA infarction. Infarctions location was first demonstrated on MRI brain 07/10/2018. Di ffusion weighted scans are negative. There is no indication of acute ischemic injury. The brainstem has an unremarkable appearance. Moderate cerebellar atrophy is evident. CRANIOCERVICAL JUNCTION: No abnormalities are identified at the craniocervical junction. VASCULAR FLOW-VOIDS: Normal flow-voids are present within the major intracranial vessels. ORBITS: The orbits have an unremarkable appearance. SINUSES / MASTOIDS: There is no indication of inflammatory disease in the paranasal sinuses or mastoi d air cells. IMPRESSION: 1. Advanced parenchymal volume loss with profound bilateral temporal lobe atrophy. Are there signs or symptoms of Alzheimer's dementia 2. Remote right MCA infarction. 3. Advanced microvascular ischemic change. 4. No acute intracranial abnormalities are identified. Signer Name: Lizandro Mir MD Signed: 05/28/2021 12:07 PM Workstation Name: [id number]
--- NOTE | 2021-05-28 15:06 | Progress Note ---
Assessment and Plan The patient is an 81-year-old female with history patient has been history of CVA with left-sided weakness, dementia, right breast CA with partial removal and bedbound status present with a chief complaint of altered mental status. The milan lawrence originally was brought in by EMS under a code stroke. ED work-up showed WBC 5.6, hemoglobin 14.1 platelet 203, sodium 136, potassium 4.4, creatinine 0.5, serum glucose 103, lactic acid 2.90, calcium 10.7, magnesium 1.9, thyroid stimulating hormone 9.250, Free T4 1.3, and serum albumin 3.3. Patient has elevated lactic acid and TSH. A/P -- Metabolic encephalopathy CT of the head done no acute finding Patient is nonverbal to verbal stimuli -only speaks 1 or 2 words Speech pathologist consulted, PT and OT consulted Continue IV fluid for hydration --History of old CVA with left-sided weakness and dysphagia Continue antiplatelet and statin CT of the head is negative for acute finding PT OT consult --Hypoglycemia, due to poor oral intake Patient takes regular diet by daughter at home Pending speech eval, continue pured diet for now -- Hyperammonemia Elevated ammonia on blood work Given lactulose monitor ammonia level --Lactic acidosis, likely due to dehydration improved --History of right breast cancer Continue supportive care, outpatient follow-up -- Dementia Resume home med for dementia, frequent orientation and supportive care -- DVT prophylaxis Subcutaneous Lovenox Daily clinical course: 05/27/21: MRI brain pending, continue IV fluid, follow BMP. Follow ammonia level. Wait for PT and speech eval. Will follow speech recommendation to initiate diet. Patient appears chronically debilitated and bedbound state at home. Will discuss with family for hospice. Continue supportive care for now and follow MRI result. 05/28/21: Brain MRI showed no acute infarct and extensive chronic vascular changes. Discussed with patient daughter at bedside about hospice but she declined. Continue supportive care. Blood glucose noted to be at 60s today. Initiate pured diet and continue D5Ns. If patient clinically stable, ammonia level and blood glucose improved possible discharge tomorrow with home health. Subjective Date of service: 05/28/21 Interval history: Patient seen and examined. Medical records and medication list reviewed. No acute event overnight noted by the RN. Patient speaks only couple of words and complains of generalized body ache Status post a brain MRI today Discussed plan of care at bedside with patient's daughter. Objective - Exam Narrative Exam: General appearance: Present: mild distress and lethargic elderly - [place] female - EENT Eyes: Present: PERRL ENT: hearing intact, dry oral mucosa - Neck Neck: Present: supple, normal ROM - Respiratory Respiratory effort: normal Respiratory: bilateral: CTA - Cardiovascular Heart Sounds: Present: S1 & S2. Absent: rub, click - Extremities Extremities: pulses symmetrical, No edema Peripheral Pulses: within normal limits - Abdominal General gastrointestinal: Present: soft, non-tender, non-distended, normal bowel sounds Female genitourinary: Present: normal - Integumentary Integumentary: Present: clear, warm, dry - Musculoskeletal Musculoskeletal: Generalized weakness - Psychiatric Psychiatric: Unable to assess as patient hardly speaks anything - Neurologic Neurologic: CNII-XII intact, moves all extremities - Labs CBC & Chem 7: 05/27/21 02:54 05/29/21 05:48 Labs: Abnormal lab results 05/28/21 05/28/21 Range/Units 08:05 12:01 POC Glucose 65 L 62 L (70-105) mg/dL HEART Score - HEART Score Troponin: Troponin T 0.016 ng/mL (0.00-0.029) 05/26/21 21:31
[2021-05-28] MEDS: ASPIRIN EC 81 MG TAB PO SCH (18:25)
[2021-05-28] MEDS: ENOXAPARIN 40 MG/0.4 ML INJ SUB-Q SCH (18:25)
[2021-05-28] MEDS: levETIRAcetam 500 MG TAB PO SCH ×2 (18:25→23:26)
[2021-05-28] MEDS: FAMOTIDINE 10 MG TAB PO SCH ×2 (18:38→23:26)
[2021-05-28] MEDS: QUEtiapine 25 MG TAB PO SCH (23:26)
[2021-05-28] MEDS: MIRTAZAPINE 15 MG TAB PO SCH (23:26)
--- NOTE | 2021-05-29 02:37 | Cat Scan Report ---
CT HEAD WITHOUT CONTRAST INDICATION : Altered Mental Status. TECHNIQUE: Axial, coronal and sagittal CT imaging was performed from the skull apex through the skul l base without contrast. All CT scans at this location are performed using CT dose reduction for ALA RA by means of automated exposure control. COMPARISON: MRI brain without contrast from 05/28/2021. CT head without contrast from 05/26/2021. FINDINGS: PARENCHYMA: No mass, midline shift, hemorrhage, extraaxial collection or acute territorial infarctio n. Unchanged atrophy and findings of remote right MCA infarction. Unchanged advanced changes of map compiler constance microangiopathy. VENTRICLES: Enlarged secondary to atrophy without an acute abnormality. SOFT TISSUES: No significant abnormality of the included soft tissues/orbits. BONES: No acute osseous abnormality. SINUSES: No significant abnormality. ADDITIONAL FINDINGS: None. IMPRESSION: 1. No acute intracranial abnormality. No significant interval changes. Signer Name: Cresencio Samson MD Signed: 05/29/2021 2:32 AM Workstation Name: [id number]
[2021-05-29 07:59] LABS: Blood Urea Nitrogen 11 mg/dL (7-17); Calcium 10.3 mg/dL (8.4-10.2); Hemolysis Index 6
[2021-05-29 08:02] LABS: BUN/Creatinine Ratio 22
[2021-05-29] MEDS: ENOXAPARIN 40 MG/0.4 ML INJ SUB-Q SCH (10:00)
--- NOTE | 2021-05-29 14:00 | Discharge Summary ---
Providers - Providers Date of Admission: 05/26/21 23:13 Date of discharge: 05/29/21 Attending physician: SONY FARRAR 05/26/21 23:41 Consult to Case Management [CONS] Routine Services Needed at Discharge: Abatement Worker Notified:: cm notified Consult to Dietitian/Nutrition [CONS] Routine Physician Instructions: Reason For Exam: AMS Reason for Consult: Nutrition Recommendations Reason for Consult: Malnutrition Occupational Therapy Evaluate and Treat [CONS] Routine Comment: Reason For Exam: Neuro deficits Physical Therapy Evaluation and Treat [CONS] Routine Comment: Reason For Exam: Neuro deficits 05/27/21 01:09 Speech Therapy Evaluation and Treat [CONS] Routine Reason For Exam: ams Primary care physician: TECTONOPHYSICIST Hospitalization Condition: Fair Pertinent studies: Head CT, brain MRI, chest x-ray,, 2D echocardiogram Hospital course: The patient is an 81-year-old female with history patient has been history of CVA with left-sided weakness, dementia, right breast CA with partial removal and bedbound status present with a chief complaint of altered mental status. The patient originally was brought in by EMS under a code stroke. ED work-up showed WBC 5.6, hemoglobin 14.1 platelet 203, sodium 136, potassium 4.4, creatinine 0.5, serum glucose 103, lactic acid 2.90, calcium 10.7, magnesium 1.9, thyroid stimulating hormone 9.250, Free T4 1.3, and serum albumin 3.3. Patient has elevated lactic acid and TSH. Daily clinical course: 05/27/21: MRI brain pending, continue IV fluid, follow BMP. Follow ammonia level. Wait for PT and speech eval. Will follow speech recommendation to initiate diet. Patient appears chronically debilitated and bedbound state at home. Will discuss with family for hospice. Continue supportive care for now and follow MRI result. 05/28/21: Brain MRI showed no acute infarct and extensive chronic vascular ch anges. Discussed with patient daughter at bedside about hospice but she declined. Continue supportive care. Blood glucose noted to be at 60s today. Initiate pured diet and continue D5Ns. If patient clinically stable, ammonia level and blood glucose improved possible discharge tomorrow with home health. 05/29/21: 2D echo showed EF 30 to 35%. Repeat CT head without any change. Ammonia level stabilized, speech recommended pured diet. Blood glucose intermittently remains low and daughter was made aware of that. Family was advised to quit feeding. Patient will be discharged home with home health and 26/05 family supervision. A/P -- Metabolic encephalopathy CT of the head done no acute finding MRI brain showed no acute CVA Patient is nonverbal to verbal stimuli -only speaks 1 or 2 words Speech pathologist consulted recommended pured diet Patient is bedbound at her baseline --History of old CVA with left-sided weakness and dysphagia Continue antiplatelet and statin CT of the head and MRI brain are negative for acute finding --Hypoglycemia, due to poor oral intake Speech recommended pured diet Family advised for frequent feeding -- Hyperammonemia, resolved with lactulose --Lactic acidosis, likely due to dehydration improved --History of right breast cancer Continue supportive care, outpatient follow-up -- Dementia frequent orientation and supportive care -- DVT prophylaxis Subcutaneous Lovenox Disposition: [id number] HOME UNDER HOME [facility] Final Discharge Diagnosis (Prints w/discharge instructions): -- Metabolic encephalopathy. --History of old CVA with left-sided weakness and dysphagia. --Hypoglycemia, due to poor oral intake. -- Hyperammonemia, resolved. --Lactic acidosis, likely due to dehydration improved. --Systolic CHF with EF 30 to 35%, likely chronic and compensated. --History of right breast cancer. -- Dementia Time spent for discharge: 34 minutes Core Measure Documentation - Palliative Care Palliative Care/ Comfort Measures: Not Applicable - Core Measures Any of the following diagnoses?: heart failure, history only - Heart Failure Discharge Requirements EITAN/ARB for LVSD if EF <40%: No Reason for no EITAN/ARB: Hypotension Beta thompson at discharge: Yes Exam - Physical Exam Narrative exam: General appearance: Present: lethargic elderly -[place] female - EENT Eyes: Present: PERRL ENT: hearing intact, dry oral mucosa - Neck Neck: Present: supple, normal ROM - Respiratory Respiratory effort: normal Respiratory: bilateral: CTA - Cardiovascular Heart Sounds: Present: S1 & S2. Absent: rub, click - Extremities Extremities: pulses symmetrical, No edema Peripheral Pulses: within normal limits - Abdominal General gastrointestinal: Present: soft, non-tender, non-distended, normal bowel sounds Female genitourinary: Present: normal - Integumentary Integumentary: Present: clear, warm, dry - Musculoskeletal Musculoskeletal: Generalized weakness - Psychiatric Psychiatric: Unable to assess as patient hardly speaks anything - Neurologic Neurologic: CNII-XII intact, moves all extremities - Constitutional Vitals: Temp Pulse Resp BP Pulse Ox 97.5 F L 113 H 16 118/60 95 05/29/21 04:26 05/29/21 04:26 05/29/21 04:26 05/29/21 04:05/29/21 04:26 Plan Activity: fall precautions Weight Bearing Status: Weight Bear as Tolerated Diet: advance as tolerated Follow up with: PRIMARY CAREMD [Primary Care Provider] - 3-5 Days MAHSA LOZANO MD [Staff Physician] - 7 Days TINY SENA MD [Staff Physician] - 7 Days Prescriptions: Lactulose 10 gm PO DAILY PRN #10 packet PRN Reason: Constipation
[2021-05-29 18:07] VITALS: BP 153/103
[2021-05-29] MEDS: levETIRAcetam 500 MG TAB PO SCH (20:38)
[2021-05-29] MEDS: ASPIRIN EC 81 MG TAB PO SCH (20:38)
[2021-05-29] MEDS: FAMOTIDINE 10 MG TAB PO SCH (20:40)
== END 2021-05-29 18:00 | disposition home health service (06) | DRG 71 ==
LOC: ED 20:42 → 3A 23:13
PROVIDERS: ADMIT Internal Medicine Geriatric Medicine; ATTEND Internal Medicine
DX: G93.41 Metabolic encephalopathy (principal); I42.0 Dilated cardiomyopathy; E72.20 Disorder of urea cycle metabolism, unspecified; I69.354 Hemiplegia and hemiparesis following cerebral infarction affecting left non-dominant side; E87.2 Acidosis; I50.22 Chronic systolic (congestive) heart failure; E16.2 Hypoglycemia, unspecified; I11.0 Hypertensive heart disease with heart failure; Z20.828 Contact with and (suspected) exposure to other viral communicable diseases; F03.90 Unspecified dementia, unspecified severity, without behavioral disturbance, psychotic disturbance, mood disturbance, and anxiety; I95.9 Hypotension, unspecified; Z86.718 Personal history of other venous thrombosis and embolism; Z86.711 Personal history of pulmonary embolism; Z79.899 Other long term (current) drug therapy; Z88.0 Allergy status to penicillin; Z74.01 Bed confinement status; Z85.3 Personal history of malignant neoplasm of breast; E86.0 Dehydration; R13.10 Dysphagia, unspecified
CPT/HCPCS: 36415; 70450; 70551; 71045; 80048; 80053; 80061; 80320; 82140; 82550; 82553; 82962; 83036; 83735; 83880; 84439; 84443; 84484; 85025; 85610; 85670; 85730; 87040; 93005; 93306; G0378; G0480; J1650; J1956; J7030; J7042; U0003